=== PATIENT | female | born 1960 | race Caucasian/White ===

== ENCOUNTER 2020-09-12 19:47 | Inpatient (IN) | payer MEDICAID, MEDICARE ==
[~2020-09-12] VITALS: Ht 144.8 cm; Wt 57.4 kg
[2020-09-12 21:17] LABS: ALANINE AMINOTRANSFERASE 51 U/L (12-78); ALBUMIN/GLOBULIN RATIO 0.3 (1.1-1.5); ALKALINE PHOSPHATASE 221 IU/L (46-116); ANION GAP 1 (8-16); ASPARTATE AMINO TRANSFERASE 69 U/L (10-37); BILIRUBIN,TOTAL 1.4 MG/DL (0.1-1.0); BLOOD UREA NITROGEN 12 MG/DL (7-18); BUN/CREATININE RATIO 26.7 (6.6-38.0); CHLORIDE 101 MMOL/L (99-107); CREATININE 0.45 MG/DL (0.40-0.90); SODIUM 134 MMOL/L (135-145); TOTAL CARBON DIOXIDE 31.7 MMOL/L (24-32); TOTAL PROTEIN 8.1 G/DL (6.4-8.2); eGFR > 90 ML/MIN
[2020-09-12 21:19] LABS: BASOPHILS # (AUTO) 0.1 X10'3 (0-0.2); BASOPHILS % (AUTO) 0.8 % (0-1); EOSINOPHILS # (AUTO) 0.2 X10'3 (0-0.9); EOSINOPHILS % (AUTO) 2.6 % (0-6); HEMATOCRIT 24.9 % (35.0-45.0); LYMPHOCYTES # (AUTO) 1.2 X10'3 (1.1-4.8); LYMPHOCYTES % (AUTO) 15.7 % (21-51); MEAN CORPUSCULAR HEMOGLOBIN 30.2 PG (27.0-31.0); MEAN CORPUSCULAR HGB CONC 32.2 g/dL (33.0-36.5); MEAN CORPUSCULAR VOLUME 93.7 FL (78-98); MEAN PLATELET VOLUME 10.7 FL (7.4-10.4); MONOCYTES # (AUTO) 1.6 X10'3 (0-0.9); NEUTROPHILS # (AUTO) 4.7 X10'3 (1.8-7.7); NEUTROPHILS % (AUTO) 59.9 % (42-75); PLATELET COUNT 109 X10'3 (140-440); RED BLOOD COUNT 2.66 X10'6 (4.20-5.60); RED CELL DISTRIBUTION WIDTH 19.5 % (11.5-14.5); WHITE BLOOD COUNT 7.9 X10'3 (4.5-11.0)
[2020-09-12 21:25] LABS: TROPONIN I 0.45 NG/ML (0.0-0.05)
[2020-09-12 21:28] LABS: GLUCOSE 91 MG/DL (70-104)
[2020-09-12 21:50] LABS: TOTAL CELLS COUNTED 100
[2020-09-12 21:51] LABS: ANISOCYTOSIS 2+; PLATELET ESTIMATE DECREASED; POLYCHROMASIA FEW
[2020-09-12 21:52] LABS: HYPOCHROMASIA 3+; LARGE PLATELETS FEW
[2020-09-12] MEDS ORDERED: heparin 10,000 units/1 ML INJ IV ONE (22:10)
[2020-09-12] MEDS ORDERED: heparin 10,000 units/1 ML INJ IV PRN (22:10)
[2020-09-12] MEDS ORDERED: heparin 25,000 UNIT/250ml bag 250 ML IV SCH (22:10)
[2020-09-12] MEDS ORDERED: iohexol 350MG/ML 100ml bottle IV ONE (22:12)
[2020-09-12 22:43] LABS: PARTIAL THROMBOPLASTIN TIME 32 SECONDS (22-32)
--- NOTE | 2020-09-12 22:48 | NUR ---
SAFE WORD: "kailyn". Daughter Archana, Son Pop, and Daughter Taryn williay to have information regarding pt.
[2020-09-12] MEDS ORDERED: POTA10CA44 PO (22:57)
[2020-09-12] MEDS ORDERED: LISI20TA28 PO (22:59)
[2020-09-12] MEDS ORDERED: FURO-150 PO (23:00)
[2020-09-12] MEDS ORDERED: SPIR50TA5 PO (23:00)
[2020-09-12] MEDS ORDERED: OLAN5TAB5 PO (23:01)
[2020-09-12] MEDS ORDERED: DOXYCYCLINE 100MG CAPSULE PO STA (23:35)
[2020-09-12] MEDS ORDERED: CefTRIAXone 2gm/D5W 50ml BAG 50 ML IV ONE (23:35)
[2020-09-13] MEDS ORDERED: furosemide 10 MG/1 ML 10ml inj IV ONE (00:45)
[2020-09-13] MEDS ORDERED: ondansetron/PF 4mg/2ml inj IV PRN (01:35)
[2020-09-13] MEDS ORDERED: potassium Cl 20 mEq SR tablet PO PRN ×2 (01:35)
[2020-09-13] MEDS ORDERED: potassium Cl 40MEQ/1/2NS 520ml 520 ML IV PRN ×2 (01:35)
[2020-09-13] MEDS ORDERED: magnesium hydroxide 30ml (MOM) UD suspension PO PRN (01:35)
[2020-09-13] MEDS ORDERED: acetaminophen 325mg tablet PO PRN (01:35)
[2020-09-13] MEDS ORDERED: albuterol 2.5 MG/3 ML nebule NEB PRN (01:40)
[2020-09-13 02:00] VITALS: BP 110/58
[2020-09-13 06:00] VITALS: BP 95/44
--- NOTE | 2020-09-13 06:23 | NUR ---
Problems reprioritized. Patient report given, questions answered & plan of care reviewed with Allan RICHARD.
[2020-09-13] MEDS: OLANZAPINE 5 MG TABLET PO SCH (07:16)
[2020-09-13] MEDS: spironolactone 50 MG tablet PO SCH (07:16)
[2020-09-13] MEDS: K and/or MAG REPLACEMENT MC SCH ×2 (07:17→20:00)
[2020-09-13] MEDS: furosemide 20MG tablet PO SCH (07:17)
[2020-09-13] MEDS: potassium Cl 20 mEq SR tablet PO SCH ×2 (07:21→20:00)
[2020-09-13] MEDS: lisinopril 5mg tablet PO SCH (08:00)
[2020-09-13 11:00] VITALS: BP 103/49
[2020-09-13] MEDS ORDERED: mag hydrox/Alum hydrox/simeth 30ml oral suspension PO ONE (13:25)
[2020-09-13] MEDS ORDERED: diphenhydrAMINE 25 MG/10 ML UD oral solution PO ONE (13:25)
[2020-09-13 15:00] VITALS: BP 93/42
[2020-09-13] MEDS: LIDOcaine Viscous 15ml cup MM PRN (15:31)
[2020-09-13 18:00] VITALS: BP 100/53
[2020-09-13] MEDS: lactobacillus rhamnosus 10,000 MMU CELLS/CAPSULE PO SCH (20:13)
[2020-09-13] MEDS: HYDROcodone/acetaminophen 5mg/325mg tablet PO PRN (21:20)
[2020-09-13 22:00] VITALS: BP 91/44
[2020-09-13] MEDS: CefTRIAXone/D5W-Rocephin 1gm 50 ML IV SCH (22:51)
[2020-09-13] MEDS ORDERED: furosemide 20 MG/2 ML vial IV ONE (23:00)
[2020-09-13] MEDS ORDERED: heparin 25,000 UNIT/250ml bag 250 ML IV SCH (23:00)
[2020-09-13] MEDS ORDERED: heparin 10,000 units/1 ML INJ IV ONE (23:00)
[2020-09-13] MEDS ORDERED: heparin 10,000 units/1 ML INJ IV PRN (23:00)
[2020-09-13] MEDS ORDERED: regadenoson 0.4mg/5ml syringe IV PRN (23:40)
[2020-09-13] MEDS ORDERED: metoprolol tartrate 1mg/ml inj IV PRN (23:40)
[2020-09-13] MEDS ORDERED: aminophylline 250mg/10ml inj. IV PRN (23:40)
[2020-09-13] MEDS ORDERED: nitroGLYCERIN 0.4mg SUBLingual tab SL PRN (23:40)
[2020-09-14] VITALS (16 sets, daily range): BP systolic 100–119; BP diastolic 45–63
[2020-09-14 00:40] LABS: URINE AMPHETAMINE SCREEN NEGATIVE (Neg); URINE BARBITUATE SCREEN NEGATIVE (Neg); URINE BENZODIAZEPINES SCREEN NEGATIVE (Neg); URINE CANNABINOID SCREEN NEGATIVE (Neg); URINE COCAINE SCREEN NEGATIVE (Neg); URINE METHADONE SCREEN NEGATIVE (Neg); URINE OPIATE SCREEN NEGATIVE (Neg); URINE PHENCYCLIDINE SCREEN NEGATIVE (Neg)
[2020-09-14 04:01] LABS: ALANINE AMINOTRANSFERASE 35 U/L (12-78); ALBUMIN 1.6 G/DL (3.4-5.0); ALBUMIN/GLOBULIN RATIO 0.3 (1.1-1.5); ALKALINE PHOSPHATASE 153 IU/L (46-116); ANION GAP 1 (8-16); ASPARTATE AMINO TRANSFERASE 62 U/L (10-37); BILIRUBIN,TOTAL 1.1 MG/DL (0.1-1.0); BLOOD UREA NITROGEN 13 MG/DL (7-18); BUN/CREATININE RATIO 27.7 (6.6-38.0); CALCIUM 7.3 MG/DL (8.5-10.1); CHLORIDE 101 MMOL/L (99-107); CREATININE 0.47 MG/DL (0.40-0.90); GLUCOSE 87 MG/DL (70-104); POTASSIUM 4.7 MMOL/L (3.5-5.1); SODIUM 136 MMOL/L (135-145); TOTAL CARBON DIOXIDE 33.9 MMOL/L (24-32); TOTAL PROTEIN 6.5 G/DL (6.4-8.2); eGFR > 90 ML/MIN
[2020-09-14 04:53] LABS: PLATELET COUNT 77 X10'3 (140-440)
[2020-09-14 04:55] LABS: MEAN CORPUSCULAR HGB CONC 32.8 g/dL (33.0-36.5); MEAN CORPUSCULAR VOLUME 91.3 FL (78-98); MEAN PLATELET VOLUME 10.8 FL (7.4-10.4); RED BLOOD COUNT 2.33 X10'6 (4.20-5.60); RED CELL DISTRIBUTION WIDTH 19.4 % (11.5-14.5)
[2020-09-14 05:50] LABS: HEMATOCRIT 21.3 % (35.0-45.0)
[2020-09-14 06:34] LABS: PLATELET ESTIMATE DECREASED; TOTAL CELLS COUNTED 100
[2020-09-14 06:35] LABS: ANISOCYTOSIS 2+; HYPOCHROMASIA 1+; LARGE PLATELETS FEW; POLYCHROMASIA 1+
[2020-09-14] MEDS: lisinopril 5mg tablet PO SCH (08:00)
[2020-09-14] MEDS: potassium Cl 20 mEq SR tablet PO SCH ×2 (08:00→19:38)
[2020-09-14] MEDS: K and/or MAG REPLACEMENT MC SCH ×2 (08:00→19:38)
[2020-09-14] MEDS: spironolactone 50 MG tablet PO SCH (08:26)
[2020-09-14] MEDS: OLANZAPINE 5 MG TABLET PO SCH (08:26)
[2020-09-14] MEDS: lactobacillus rhamnosus 10,000 MMU CELLS/CAPSULE PO SCH ×2 (08:26→19:37)
[2020-09-14] MEDS: furosemide 20MG tablet PO SCH (08:26)
--- NOTE | 2020-09-14 10:43 | NUR ---
BECKY VIGIL: 3028B: Bloody tissues found on table. Pt states she's been coughing up blood at times this morning. HEPARIN stopped last night. Hgb dropped from 8.0 --> 7.0 this AM. No signs of bleeding. Recommend CT abd? Allan [id number]
[2020-09-14] MEDS: LIDOcaine Viscous 15ml cup MM PRN (16:38)
[2020-09-14] MEDS: HYDROcodone/acetaminophen 5mg/325mg tablet PO PRN ×2 (16:39→21:05)
[2020-09-14] MEDS: pantoprazole 40 MG vial IV SCH (19:37)
[2020-09-14 19:54] LABS: BASOPHILS # (AUTO) 0.1 X10'3 (0-0.2); BASOPHILS % (AUTO) 1.3 % (0-1); EOSINOPHILS # (AUTO) 0.2 X10'3 (0-0.9); EOSINOPHILS % (AUTO) 4.2 % (0-6); HEMATOCRIT 25.6 % (35.0-45.0); HEMOGLOBIN 8.4 g/dl (12.0-16.0); LYMPHOCYTES # (AUTO) 0.9 X10'3 (1.1-4.8); LYMPHOCYTES % (AUTO) 20.2 % (21-51); MEAN CORPUSCULAR HGB CONC 32.9 g/dL (33.0-36.5); MEAN CORPUSCULAR VOLUME 91.1 FL (78-98); MEAN PLATELET VOLUME 9.8 FL (7.4-10.4); MONOCYTES # (AUTO) 1.1 X10'3 (0-0.9); MONOCYTES % (AUTO) 23.7 % (2-12); NEUTROPHILS # (AUTO) 2.4 X10'3 (1.8-7.7); NEUTROPHILS % (AUTO) 50.6 % (42-75); PLATELET COUNT 77 X10'3 (140-440); RED BLOOD COUNT 2.81 X10'6 (4.20-5.60); RED CELL DISTRIBUTION WIDTH 18.4 % (11.5-14.5); WHITE BLOOD COUNT 4.7 X10'3 (4.5-11.0)
[2020-09-14] MEDS: CefTRIAXone/D5W-Rocephin 1gm 50 ML IV SCH (21:06)
[2020-09-15 02:00] VITALS: BP 121/55
[2020-09-15 06:00] VITALS: BP 102/60
[2020-09-15 06:33] LABS: BASOPHILS # (AUTO) 0.1 X10'3 (0-0.2); BASOPHILS % (AUTO) 1.5 % (0-1); EOSINOPHILS # (AUTO) 0.3 X10'3 (0-0.9); EOSINOPHILS % (AUTO) 4.4 % (0-6); HEMATOCRIT 26.6 % (35.0-45.0); HEMOGLOBIN 8.8 g/dl (12.0-16.0); LYMPHOCYTES # (AUTO) 1.1 X10'3 (1.1-4.8); LYMPHOCYTES % (AUTO) 18.5 % (21-51); MEAN CORPUSCULAR HGB CONC 33.1 g/dL (33.0-36.5); MEAN CORPUSCULAR VOLUME 90.6 FL (78-98); MEAN PLATELET VOLUME 10.9 FL (7.4-10.4); MONOCYTES # (AUTO) 1.2 X10'3 (0-0.9); MONOCYTES % (AUTO) 20.6 % (2-12); NEUTROPHILS # (AUTO) 3.2 X10'3 (1.8-7.7); PLATELET COUNT 76 X10'3 (140-440); RED BLOOD COUNT 2.94 X10'6 (4.20-5.60); RED CELL DISTRIBUTION WIDTH 18.9 % (11.5-14.5); WHITE BLOOD COUNT 5.7 X10'3 (4.5-11.0)
--- NOTE | 2020-09-15 06:37 | NUR ---
Patient in room PCU 3028. I have received report from Monster RICHARD and had the opportunity to ask questions and assume patient care.
[2020-09-15 06:38] LABS: ALANINE AMINOTRANSFERASE 42 U/L (12-78); ALBUMIN 1.9 G/DL (3.4-5.0); ALBUMIN/GLOBULIN RATIO 0.3 (1.1-1.5); ALKALINE PHOSPHATASE 178 IU/L (46-116); ANION GAP 2 (8-16); ASPARTATE AMINO TRANSFERASE 56 U/L (10-37); BILIRUBIN,TOTAL 1.6 MG/DL (0.1-1.0); BLOOD UREA NITROGEN 13 MG/DL (7-18); BUN/CREATININE RATIO 27.7 (6.6-38.0); CALCIUM 7.7 MG/DL (8.5-10.1); CHLORIDE 102 MMOL/L (99-107); CREATININE 0.47 MG/DL (0.40-0.90); GLUCOSE 89 MG/DL (70-104); POTASSIUM 4.3 MMOL/L (3.5-5.1); SODIUM 136 MMOL/L (135-145); TOTAL CARBON DIOXIDE 32.3 MMOL/L (24-32); TOTAL PROTEIN 7.6 G/DL (6.4-8.2); eGFR > 90 ML/MIN
[2020-09-15] MEDS: pantoprazole 40 MG vial IV SCH (07:47)
[2020-09-15] MEDS: furosemide 20MG tablet PO SCH (07:47)
[2020-09-15] MEDS: potassium Cl 20 mEq SR tablet PO SCH ×2 (07:47→20:00)
[2020-09-15] MEDS: lisinopril 5mg tablet PO SCH (07:48)
[2020-09-15] MEDS: spironolactone 50 MG tablet PO SCH (07:49)
[2020-09-15] MEDS: lactobacillus rhamnosus 10,000 MMU CELLS/CAPSULE PO SCH ×2 (07:49→20:21)
[2020-09-15] MEDS: OLANZAPINE 5 MG TABLET PO SCH (07:49)
[2020-09-15] MEDS: K and/or MAG REPLACEMENT MC SCH ×2 (07:55→20:00)
[2020-09-15] MEDS: HYDROcodone/acetaminophen 5mg/325mg tablet PO PRN ×2 (07:59→16:43)
[2020-09-15 08:28] LABS: TOTAL CELLS COUNTED 100
[2020-09-15 08:30] LABS: ANISOCYTOSIS 2+; LARGE PLATELETS FEW; PLATELET ESTIMATE DECREASED; POLYCHROMASIA 1+; TEAR DROP CELLS FEW
[2020-09-15 11:00] VITALS: BP 94/59
--- NOTE | 2020-09-15 14:03 | NUR ---
Sent page to Dr Washington regarding patient's family members are concerned about discharge, patient is homeless and their home is to small to accommodate patient at discharge. PAGER ID: [phone] MESSAGE: Lizzy VAIL RN pt: Shira Hannah, family called to inform us patient is homeless, no safe discharge place. they are unable to take her. please call pt's daughter Archana [phone]
[2020-09-15 15:00] VITALS: BP 111/56
[2020-09-15 18:00] VITALS: BP 101/51
--- NOTE | 2020-09-15 18:11 | NUR ---
Problems reprioritized. Patient report given, questions answered & plan of care reviewed with Monster RICHARD.
[2020-09-15] MEDS: mag hydrox/Alum hydrox/simeth 30ml oral suspension PO PRN (19:02)
[2020-09-15] MEDS: LIDOcaine Viscous 15ml cup MM PRN (19:03)
[2020-09-15] MEDS: ipratropium/albuterol 3ml nebule NEB SCH ×2 (19:45→23:18)
[2020-09-15] MEDS: pantoprazole 40mg Tablet.DR PO SCH (20:21)
[2020-09-15] MEDS: CefTRIAXone/D5W-Rocephin 1gm 50 ML IV SCH (20:22)
[2020-09-15 22:00] VITALS: BP 90/49
[2020-09-16 02:00] VITALS: BP 123/48
[2020-09-16] MEDS: HYDROcodone/acetaminophen 5mg/325mg tablet PO PRN ×3 (03:04→16:21)
[2020-09-16] MEDS: ipratropium/albuterol 3ml nebule NEB SCH ×6 (03:08→23:26)
[2020-09-16 06:00] VITALS: BP 96/54
[2020-09-16 06:25] LABS: BASOPHILS # (AUTO) 0.1 X10'3 (0-0.2); BASOPHILS % (AUTO) 1.4 % (0-1); EOSINOPHILS # (AUTO) 0.2 X10'3 (0-0.9); EOSINOPHILS % (AUTO) 3.8 % (0-6); HEMATOCRIT 23.1 % (35.0-45.0); HEMOGLOBIN 7.6 g/dl (12.0-16.0); LYMPHOCYTES # (AUTO) 1.1 X10'3 (1.1-4.8); LYMPHOCYTES % (AUTO) 18.1 % (21-51); MEAN CORPUSCULAR HEMOGLOBIN 30.1 PG (27.0-31.0); MEAN CORPUSCULAR HGB CONC 33.1 g/dL (33.0-36.5); MEAN CORPUSCULAR VOLUME 90.9 FL (78-98); MEAN PLATELET VOLUME 10.5 FL (7.4-10.4); MONOCYTES # (AUTO) 1.3 X10'3 (0-0.9); MONOCYTES % (AUTO) 21.7 % (2-12); NEUTROPHILS # (AUTO) 3.4 X10'3 (1.8-7.7); PLATELET COUNT 74 X10'3 (140-440); RED BLOOD COUNT 2.54 X10'6 (4.20-5.60); RED CELL DISTRIBUTION WIDTH 18.8 % (11.5-14.5); WHITE BLOOD COUNT 6.1 X10'3 (4.5-11.0)
--- NOTE | 2020-09-16 06:31 | NUR ---
Patient in room PCU 3028. I have received report from Monster RICHARD and had the opportunity to ask questions and assume patient care.
[2020-09-16 06:44] LABS: ANION GAP -1 (8-16); BLOOD UREA NITROGEN 17 MG/DL (7-18); BUN/CREATININE RATIO 36.2 (6.6-38.0); CALCIUM 7.4 MG/DL (8.5-10.1); CHLORIDE 102 MMOL/L (99-107); CREATININE 0.47 MG/DL (0.40-0.90); SODIUM 134 MMOL/L (135-145); eGFR > 90 ML/MIN
[2020-09-16 06:45] LABS: ALANINE AMINOTRANSFERASE 38 U/L (12-78); ALBUMIN 1.7 G/DL (3.4-5.0); ALBUMIN/GLOBULIN RATIO 0.3 (1.1-1.5); ALKALINE PHOSPHATASE 166 IU/L (46-116); ASPARTATE AMINO TRANSFERASE 51 U/L (10-37); BILIRUBIN,TOTAL 1.2 MG/DL (0.1-1.0)
[2020-09-16 06:46] LABS: GLUCOSE 70 MG/DL (70-104)
[2020-09-16] MEDS: K and/or MAG REPLACEMENT MC SCH ×2 (07:08→19:54)
[2020-09-16] MEDS: azithromycin/NS 500mg/250ml 250 ML IV SCH (07:50)
[2020-09-16] MEDS: spironolactone 50 MG tablet PO SCH (07:52)
[2020-09-16] MEDS: lactobacillus rhamnosus 10,000 MMU CELLS/CAPSULE PO SCH ×2 (07:52→19:54)
[2020-09-16] MEDS: OLANZAPINE 5 MG TABLET PO SCH (07:52)
[2020-09-16] MEDS: pantoprazole 40mg Tablet.DR PO SCH ×2 (07:52→19:54)
[2020-09-16] MEDS: furosemide 20MG tablet PO SCH (07:52)
[2020-09-16] MEDS: lisinopril 5mg tablet PO SCH (07:53)
[2020-09-16] MEDS: potassium Cl 20 mEq SR tablet PO SCH ×2 (07:53→19:54)
[2020-09-16 11:00] VITALS: BP 104/60
[2020-09-16 15:00] VITALS: BP 114/67
[2020-09-16] MEDS: benzonatate 100mg capsule PO SCH ×2 (16:10→23:06)
[2020-09-16] MEDS: LIDOcaine Viscous 15ml cup MM PRN (16:21)
[2020-09-16 18:00] VITALS: BP 107/52
--- NOTE | 2020-09-16 18:12 | NUR ---
Patient in room PCU 3028. I have received report from Monster RICHARD and had the opportunity to ask questions and assume patient care.
[2020-09-16] MEDS: budesonide 0.5mg/2ml UD nebule IH SCH (20:06)
[2020-09-16] MEDS: CefTRIAXone/D5W-Rocephin 1gm 50 ML IV SCH (21:17)
[2020-09-16 22:00] VITALS: BP 111/56
[2020-09-17] VITALS (7 sets, daily range): BP systolic 88–143; BP diastolic 40–71
[2020-09-17] MEDS: ipratropium/albuterol 3ml nebule NEB SCH ×6 (03:20→23:26)
[2020-09-17] MEDS: HYDROcodone/acetaminophen 5mg/325mg tablet PO PRN ×2 (03:37→15:08)
[2020-09-17] MEDS: mag hydrox/Alum hydrox/simeth 30ml oral suspension PO PRN (03:37)
[2020-09-17] MEDS: budesonide 0.5mg/2ml UD nebule IH SCH ×2 (07:00→19:35)
[2020-09-17] MEDS: benzonatate 100mg capsule PO SCH ×2 (07:23→15:07)
[2020-09-17] MEDS: lactobacillus rhamnosus 10,000 MMU CELLS/CAPSULE PO SCH ×2 (07:23→20:00)
[2020-09-17] MEDS: azithromycin/NS 500mg/250ml 250 ML IV SCH (07:23)
[2020-09-17] MEDS: furosemide 20MG tablet PO SCH (07:24)
[2020-09-17] MEDS: pantoprazole 40mg Tablet.DR PO SCH ×2 (07:24→20:00)
[2020-09-17] MEDS: OLANZAPINE 5 MG TABLET PO SCH (07:24)
[2020-09-17] MEDS: spironolactone 50 MG tablet PO SCH (07:24)
[2020-09-17] MEDS: potassium Cl 20 mEq SR tablet PO SCH ×2 (07:24→20:00)
[2020-09-17] MEDS: lisinopril 5mg tablet PO SCH (07:26)
[2020-09-17] MEDS: K and/or MAG REPLACEMENT MC SCH ×2 (08:00→20:00)
[2020-09-17 08:10] LABS: BASOPHILS # (AUTO) 0.1 X10'3 (0-0.2); HEMOGLOBIN 7.6 g/dl (12.0-16.0); RED BLOOD COUNT 2.55 X10'6 (4.20-5.60)
[2020-09-17 08:13] LABS: BASOPHILS % (AUTO) 1.4 % (0-1); EOSINOPHILS # (AUTO) 0.3 X10'3 (0-0.9); EOSINOPHILS % (AUTO) 5.1 % (0-6); HEMATOCRIT 23.2 % (35.0-45.0); LYMPHOCYTES % (AUTO) 19.1 % (21-51); MEAN CORPUSCULAR HEMOGLOBIN 29.6 PG (27.0-31.0); MEAN CORPUSCULAR HGB CONC 32.6 g/dL (33.0-36.5); MEAN PLATELET VOLUME 11.1 FL (7.4-10.4); NEUTROPHILS # (AUTO) 2.8 X10'3 (1.8-7.7); NEUTROPHILS % (AUTO) 54.4 % (42-75); PLATELET COUNT 71 X10'3 (140-440); WHITE BLOOD COUNT 5.2 X10'3 (4.5-11.0)
[2020-09-17 08:25] LABS: ALANINE AMINOTRANSFERASE 34 U/L (12-78); ALBUMIN 1.7 G/DL (3.4-5.0); ALBUMIN/GLOBULIN RATIO 0.3 (1.1-1.5); ALKALINE PHOSPHATASE 151 IU/L (46-116); ANION GAP -1 (8-16); ASPARTATE AMINO TRANSFERASE 53 U/L (10-37); BILIRUBIN,TOTAL 1.4 MG/DL (0.1-1.0); BLOOD UREA NITROGEN 16 MG/DL (7-18); BUN/CREATININE RATIO 38.1 (6.6-38.0); CALCIUM 7.6 MG/DL (8.5-10.1); CHLORIDE 101 MMOL/L (99-107); CREATININE 0.42 MG/DL (0.40-0.90); POTASSIUM 4.9 MMOL/L (3.5-5.1); SODIUM 133 MMOL/L (135-145); TOTAL CARBON DIOXIDE 32.6 MMOL/L (24-32); TOTAL PROTEIN 6.9 G/DL (6.4-8.2); eGFR > 90 ML/MIN
[2020-09-17 08:31] LABS: GLUCOSE 90 MG/DL (70-104)
[2020-09-17 09:08] LABS: ANISOCYTOSIS 2+; PLATELET ESTIMATE DECREASED
[2020-09-17 09:17] LABS: HYPOCHROMASIA 1+
[2020-09-17 09:18] LABS: SCHISTOCYTES FEW
--- NOTE | 2020-09-17 09:54 | NUR ---
Initial: Pt admit w/ SOB DX anemia, type II UT, CHF, pleural effusion, and acute COPD exacerbation per EMR. Pt PO 100% avg heart healthy diet meeting needs. LBM 09/16. Noted Na 133 receiving lasix w/ -1.6L fluid balance this admit. IF serum Na remains low may benefit from liberalization to regular diet. Will continue to monitor. Rec: 1. continue heart healthy diet; consider liberalization to regular if low serum Na persists 2. routine bowel care 3. weekly wts Addendum: 09/17/20 at [address] Amended: Links added.
[2020-09-17] MEDS: LIDOcaine Viscous 15ml cup MM PRN (12:02)
--- NOTE | 2020-09-17 18:14 | NUR ---
Problems reprioritized. Patient report given, questions answered & plan of care reviewed with Monster RICHARD.
[2020-09-17] MEDS: CefTRIAXone/D5W-Rocephin 1gm 50 ML IV SCH (21:39)
[2020-09-18] MEDS: benzonatate 100mg capsule PO SCH ×3 (01:17→15:45)
[2020-09-18] MEDS: HYDROcodone/acetaminophen 5mg/325mg tablet PO PRN ×3 (01:18→21:50)
[2020-09-18 02:00] VITALS: BP 92/54
[2020-09-18] MEDS: ipratropium/albuterol 3ml nebule NEB SCH ×5 (03:37→22:57)
[2020-09-18 06:00] VITALS: BP 94/51
--- NOTE | 2020-09-18 06:17 | NUR ---
Patient in room PCU 3028. I have received report from Monster RICHARD and had the opportunity to ask questions and assume patient care.
[2020-09-18 06:54] LABS: BASOPHILS # (AUTO) 0.1 X10'3 (0-0.2); BASOPHILS % (AUTO) 1.7 % (0-1); EOSINOPHILS # (AUTO) 0.2 X10'3 (0-0.9); EOSINOPHILS % (AUTO) 4.3 % (0-6); HEMOGLOBIN 7.7 g/dl (12.0-16.0); LYMPHOCYTES # (AUTO) 1.1 X10'3 (1.1-4.8); LYMPHOCYTES % (AUTO) 20.7 % (21-51); MEAN CORPUSCULAR HEMOGLOBIN 29.8 PG (27.0-31.0); MEAN CORPUSCULAR HGB CONC 32.3 g/dL (33.0-36.5); MEAN CORPUSCULAR VOLUME 92.1 FL (78-98); MEAN PLATELET VOLUME 11.4 FL (7.4-10.4); MONOCYTES # (AUTO) 1.1 X10'3 (0-0.9); MONOCYTES % (AUTO) 21.1 % (2-12); NEUTROPHILS # (AUTO) 2.8 X10'3 (1.8-7.7); NEUTROPHILS % (AUTO) 52.2 % (42-75); PLATELET COUNT 79 X10'3 (140-440); WHITE BLOOD COUNT 5.4 X10'3 (4.5-11.0)
[2020-09-18 07:21] LABS: ALANINE AMINOTRANSFERASE 39 U/L (12-78); ALBUMIN 1.7 G/DL (3.4-5.0); ALBUMIN/GLOBULIN RATIO 0.3 (1.1-1.5); ALKALINE PHOSPHATASE 150 IU/L (46-116); ANION GAP 3 (8-16); ASPARTATE AMINO TRANSFERASE 57 U/L (10-37); BILIRUBIN,TOTAL 1.3 MG/DL (0.1-1.0); BLOOD UREA NITROGEN 18 MG/DL (7-18); BUN/CREATININE RATIO 40.9 (6.6-38.0); CALCIUM 8.2 MG/DL (8.5-10.1); CHLORIDE 102 MMOL/L (99-107); CREATININE 0.44 MG/DL (0.40-0.90); GLUCOSE 87 MG/DL (70-104); POTASSIUM 4.9 MMOL/L (3.5-5.1); SODIUM 135 MMOL/L (135-145); TOTAL CARBON DIOXIDE 29.9 MMOL/L (24-32); TOTAL PROTEIN 7.3 G/DL (6.4-8.2); eGFR > 90 ML/MIN
[2020-09-18] MEDS: OLANZAPINE 5 MG TABLET PO SCH (07:26)
[2020-09-18] MEDS: pantoprazole 40mg Tablet.DR PO SCH ×2 (07:26→19:17)
[2020-09-18] MEDS: azithromycin/NS 500mg/250ml 250 ML IV SCH (07:26)
[2020-09-18] MEDS: spironolactone 50 MG tablet PO SCH (07:26)
[2020-09-18] MEDS: potassium Cl 20 mEq SR tablet PO SCH ×2 (07:26→19:17)
[2020-09-18] MEDS: furosemide 20MG tablet PO SCH (07:26)
[2020-09-18] MEDS: lactobacillus rhamnosus 10,000 MMU CELLS/CAPSULE PO SCH ×2 (07:26→19:17)
[2020-09-18] MEDS: lisinopril 5mg tablet PO SCH (07:32)
[2020-09-18] MEDS: budesonide 0.5mg/2ml UD nebule IH SCH (07:38)
[2020-09-18] MEDS: K and/or MAG REPLACEMENT MC SCH ×2 (08:00→19:25)
[2020-09-18 08:39] LABS: ANISOCYTOSIS 2+; BURR CELLS 1+; HYPOCHROMASIA 1+; PLATELET ESTIMATE DECREASED; SCHISTOCYTES FEW
[2020-09-18] MEDS: LIDOcaine Viscous 15ml cup MM PRN (09:56)
[2020-09-18 11:00] VITALS: BP 109/53
[2020-09-18 15:00] VITALS: BP 104/62
--- NOTE | 2020-09-18 18:23 | NUR ---
Problems reprioritized. Patient report given, questions answered & plan of care reviewed with ELEAZAR RICHARD.
[2020-09-18 19:00] VITALS: BP 109/57
[2020-09-18] MEDS ORDERED: methylPREDNISolone sod succ 125mg/2ml vial IV ONE (19:50)
[2020-09-18] MEDS ORDERED: ipratropium/albuterol 3ml nebule NEB PRN (19:50)
[2020-09-18] MEDS ORDERED: methylPREDNISolone sod succ 125mg/2ml vial IV SCH (20:00)
[2020-09-18] MEDS: CefTRIAXone/D5W-Rocephin 1gm 50 ML IV SCH (21:50)
[2020-09-18 23:00] VITALS: BP 100/58
[2020-09-19] MEDS: benzonatate 100mg capsule PO SCH ×3 (00:56→16:25)
[2020-09-19] MEDS: methylPREDNISolone sod succ 125mg/2ml vial IV SCH ×4 (02:18→20:00)
[2020-09-19 03:00] VITALS: BP 104/57
[2020-09-19] MEDS: ipratropium/albuterol 3ml nebule NEB SCH ×6 (03:42→23:16)
--- NOTE | 2020-09-19 06:00 | NUR ---
Patient in room PCU 3028. I have received report from ELEAZAR RICHARD and had the opportunity to ask questions and assume patient care.
[2020-09-19 07:40] VITALS: BP 102/52
[2020-09-19] MEDS: K and/or MAG REPLACEMENT MC SCH ×2 (08:00→20:00)
[2020-09-19] MEDS: furosemide 40mg/4ml inj IV SCH ×2 (08:24→20:00)
[2020-09-19] MEDS: OLANZAPINE 5 MG TABLET PO SCH (08:25)
[2020-09-19] MEDS: lactobacillus rhamnosus 10,000 MMU CELLS/CAPSULE PO SCH ×2 (08:25→20:00)
[2020-09-19] MEDS: HYDROcodone/acetaminophen 5mg/325mg tablet PO PRN ×2 (08:25→21:21)
[2020-09-19] MEDS: potassium Cl 20 mEq SR tablet PO SCH ×2 (08:25→20:00)
[2020-09-19] MEDS: spironolactone 50 MG tablet PO SCH (08:25)
[2020-09-19] MEDS: azithromycin 250mg tablet PO SCH (08:25)
[2020-09-19] MEDS: pantoprazole 40mg Tablet.DR PO SCH (08:25)
[2020-09-19] MEDS: lisinopril 5mg tablet PO SCH (08:26)
[2020-09-19 08:47] LABS: HIV ANTIBODY 1&2 RAPID NON-REACTIVE (Neg)
[2020-09-19 11:21] LABS: BASOPHILS % (AUTO) 0.6 % (0-1); EOSINOPHILS % (AUTO) 0.1 % (0-6); HEMATOCRIT 26.3 % (35.0-45.0); HEMOGLOBIN 8.4 g/dl (12.0-16.0); LYMPHOCYTES # (AUTO) 0.2 X10'3 (1.1-4.8); MEAN CORPUSCULAR VOLUME 90.6 FL (78-98); MEAN PLATELET VOLUME 11.9 FL (7.4-10.4); MONOCYTES # (AUTO) 0.1 X10'3 (0-0.9); NEUTROPHILS # (AUTO) 3.5 X10'3 (1.8-7.7); NEUTROPHILS % (AUTO) 90.3 % (42-75); PLATELET COUNT 74 X10'3 (140-440); RED BLOOD COUNT 2.91 X10'6 (4.20-5.60); RED CELL DISTRIBUTION WIDTH 19.1 % (11.5-14.5); WHITE BLOOD COUNT 3.9 X10'3 (4.5-11.0)
[2020-09-19 11:27] LABS: MAGNESIUM 1.9 MG/DL (1.5-2.4); PHOSPHORUS 4.1 MG/DL (2.3-4.5)
[2020-09-19 12:14] LABS: ANISOCYTOSIS 2+; HYPOCHROMASIA 1+; PLATELET ESTIMATE DECREASED; SCHISTOCYTES FEW
[2020-09-19] MEDS: LIDOcaine Viscous 15ml cup MM PRN ×2 (12:54→21:20)
[2020-09-19 13:18] VITALS: BP 91/52
[2020-09-19] MEDS ORDERED: octreotide 100mcg/1 ml ampule IV ONE (16:10)
[2020-09-19] MEDS: pantoprazole 40MG/NS 100ML BAG 100 ML IV SCH ×3 (16:25→21:20)
[2020-09-19 17:35] VITALS: BP 105/49
[2020-09-19 17:53] LABS: OCCULT BLOOD STOOL POSITIVE (Neg)
[2020-09-19 18:00] VITALS: BP 104/56
--- NOTE | 2020-09-19 18:02 | NUR ---
Patient in room PCU 3028. I have received report from hadrik keysha and had the opportunity to ask questions and assume patient care.
--- NOTE | 2020-09-19 19:33 | NUR ---
pt had a moderate black tarry stool
[2020-09-19] MEDS: octreotide inj. 500 MCG in normal saline 100ml IV soln 100 ML IV SCH (20:00)
[2020-09-19] MEDS: CefTRIAXone/D5W-Rocephin 1gm 50 ML IV SCH (21:20)
[2020-09-19 22:00] VITALS: BP 91/56
[2020-09-19] MEDS: sodium ferric gluc complex inj 125 MG in normal saline 100ml IV soln 90 ML IV SCH (22:25)
[2020-09-20] VITALS (10 sets, daily range): BP systolic 91–129; BP diastolic 50–78
[2020-09-20] MEDS: pantoprazole 40MG/NS 100ML BAG 100 ML IV SCH ×5 (02:21→21:28)
[2020-09-20] MEDS: benzonatate 100mg capsule PO SCH ×3 (02:21→15:37)
[2020-09-20] MEDS: methylPREDNISolone sod succ 125mg/2ml vial IV SCH ×4 (02:21→19:57)
[2020-09-20] MEDS: ipratropium/albuterol 3ml nebule NEB SCH ×6 (02:58→23:41)
--- NOTE | 2020-09-20 05:32 | NUR ---
skin assessment on wrong pt
--- NOTE | 2020-09-20 06:09 | NUR ---
Problems reprioritized. Patient report given, questions answered & plan of care reviewed with brayan chopra.
[2020-09-20 07:34] LABS: BASOPHILS % (AUTO) 0 % (0-1); EOSINOPHILS % (AUTO) 0 % (0-6); HEMATOCRIT 23.2 % (35.0-45.0); HEMOGLOBIN 7.4 g/dl (12.0-16.0); LYMPHOCYTES # (AUTO) 0.5 X10'3 (1.1-4.8); LYMPHOCYTES % (AUTO) 5.5 % (21-51); MEAN CORPUSCULAR HEMOGLOBIN 29.5 PG (27.0-31.0); MEAN CORPUSCULAR HGB CONC 31.9 g/dL (33.0-36.5); MEAN CORPUSCULAR VOLUME 92.5 FL (78-98); MEAN PLATELET VOLUME 10.8 FL (7.4-10.4); MONOCYTES # (AUTO) 0.6 X10'3 (0-0.9); MONOCYTES % (AUTO) 6.3 % (2-12); NEUTROPHILS # (AUTO) 8.6 X10'3 (1.8-7.7); NEUTROPHILS % (AUTO) 88.2 % (42-75); PLATELET COUNT 90 X10'3 (140-440); RED BLOOD COUNT 2.51 X10'6 (4.20-5.60); RED CELL DISTRIBUTION WIDTH 19.3 % (11.5-14.5); WHITE BLOOD COUNT 9.7 X10'3 (4.5-11.0)
[2020-09-20 07:54] LABS: ALANINE AMINOTRANSFERASE 43 U/L (12-78); ALBUMIN 1.8 G/DL (3.4-5.0); ALBUMIN/GLOBULIN RATIO 0.3 (1.1-1.5); ALKALINE PHOSPHATASE 138 IU/L (46-116); ANION GAP 6 (8-16); ASPARTATE AMINO TRANSFERASE 51 U/L (10-37); BLOOD UREA NITROGEN 19 MG/DL (7-18); BUN/CREATININE RATIO 30.6 (6.6-38.0); CALCIUM 7.6 MG/DL (8.5-10.1); CHLORIDE 104 MMOL/L (99-107); CREATININE 0.62 MG/DL (0.40-0.90); MAGNESIUM 1.9 MG/DL (1.5-2.4); PHOSPHORUS 4.6 MG/DL (2.3-4.5); POTASSIUM 4.5 MMOL/L (3.5-5.1); SODIUM 139 MMOL/L (135-145); TOTAL CARBON DIOXIDE 28.8 MMOL/L (24-32); TOTAL PROTEIN 7.3 G/DL (6.4-8.2); eGFR > 90 ML/MIN
[2020-09-20] MEDS: potassium Cl 20 mEq SR tablet PO SCH ×2 (08:00→19:57)
[2020-09-20] MEDS: lactobacillus rhamnosus 10,000 MMU CELLS/CAPSULE PO SCH ×2 (08:00→19:58)
[2020-09-20] MEDS: lisinopril 5mg tablet PO SCH (08:00)
[2020-09-20] MEDS: K and/or MAG REPLACEMENT MC SCH ×2 (08:00→20:00)
[2020-09-20] MEDS: OLANZAPINE 5 MG TABLET PO SCH (08:00)
[2020-09-20] MEDS: spironolactone 50 MG tablet PO SCH (08:00)
[2020-09-20 08:02] LABS: GLUCOSE 108 MG/DL (70-104)
[2020-09-20 08:25] LABS: ANISOCYTOSIS 2+; BURR CELLS FEW; HYPOCHROMASIA 1+; LARGE PLATELETS FEW; PLATELET ESTIMATE DECREASED; POLYCHROMASIA 1+; SCHISTOCYTES FEW; TARGET CELLS 1+
[2020-09-20] MEDS: sodium ferric gluc complex inj 125 MG in normal saline 100ml IV soln 90 ML IV SCH (10:34)
[2020-09-20] MEDS: furosemide 40mg/4ml inj IV SCH ×2 (10:34→19:57)
[2020-09-20 11:12] LABS: HBSAG SCREEN Negative (Negative); HEP A AB, IGM Negative (Negative); HEPATITIS C ANTIBODY >11.0 s/co ratio (0.0-0.9)
[2020-09-20] MEDS ORDERED: fentaNYL/PF 50MCG/1 ML 2ML syringe ONE (12:14)
[2020-09-20] MEDS ORDERED: MIDAZolam 1 MG/ML 5ML VIAL ONE (12:14)
[2020-09-20] MEDS ORDERED: LIDOcaine Viscous 15ml cup ONE (12:14)
[2020-09-20] MEDS: azithromycin 250mg tablet PO SCH (15:37)
[2020-09-20] MEDS: octreotide inj. 500 MCG in normal saline 100ml IV soln 100 ML IV SCH (15:38)
[2020-09-20] MEDS: HYDROcodone/acetaminophen 5mg/325mg tablet PO PRN (20:58)
[2020-09-20] MEDS: CefTRIAXone/D5W-Rocephin 1gm 50 ML IV SCH (21:36)
[2020-09-21 02:00] VITALS: BP 124/60
[2020-09-21] MEDS: methylPREDNISolone sod succ 125mg/2ml vial IV SCH ×3 (02:40→14:53)
[2020-09-21] MEDS: pantoprazole 40MG/NS 100ML BAG 100 ML IV SCH ×3 (02:40→11:00)
[2020-09-21] MEDS: ipratropium/albuterol 3ml nebule NEB SCH ×3 (03:14→11:05)
--- NOTE | 2020-09-21 06:26 | NUR ---
Patient in room PCU 3028. I have received report from HILARY Quinones and had the opportunity to ask questions and assume patient care.
[2020-09-21 06:42] LABS: BASOPHILS % (AUTO) 0.2 % (0-1); EOSINOPHILS % (AUTO) 0 % (0-6); HEMATOCRIT 23.4 % (35.0-45.0); HEMOGLOBIN 7.6 g/dl (12.0-16.0); LYMPHOCYTES # (AUTO) 0.4 X10'3 (1.1-4.8); LYMPHOCYTES % (AUTO) 4.3 % (21-51); MEAN CORPUSCULAR HEMOGLOBIN 29.8 PG (27.0-31.0); MEAN CORPUSCULAR HGB CONC 32.6 g/dL (33.0-36.5); MEAN CORPUSCULAR VOLUME 91.5 FL (78-98); MEAN PLATELET VOLUME 10.3 FL (7.4-10.4); MONOCYTES # (AUTO) 0.6 X10'3 (0-0.9); MONOCYTES % (AUTO) 7.8 % (2-12); NEUTROPHILS # (AUTO) 7.1 X10'3 (1.8-7.7); NEUTROPHILS % (AUTO) 87.7 % (42-75); PLATELET COUNT 121 X10'3 (140-440); RED BLOOD COUNT 2.56 X10'6 (4.20-5.60); RED CELL DISTRIBUTION WIDTH 18.6 % (11.5-14.5); WHITE BLOOD COUNT 8.1 X10'3 (4.5-11.0)
[2020-09-21 06:57] LABS: ALANINE AMINOTRANSFERASE 45 U/L (12-78); ALBUMIN 1.9 G/DL (3.4-5.0); ALBUMIN/GLOBULIN RATIO 0.3 (1.1-1.5); ALKALINE PHOSPHATASE 142 IU/L (46-116); ANION GAP 3 (8-16); ASPARTATE AMINO TRANSFERASE 54 U/L (10-37); BILIRUBIN,TOTAL 1.3 MG/DL (0.1-1.0); BLOOD UREA NITROGEN 22 MG/DL (7-18); BUN/CREATININE RATIO 30.6 (6.6-38.0); CALCIUM 7.7 MG/DL (8.5-10.1); CHLORIDE 105 MMOL/L (99-107); CREATININE 0.72 MG/DL (0.40-0.90); MAGNESIUM 1.8 MG/DL (1.5-2.4); PHOSPHORUS 3.3 MG/DL (2.3-4.5); SODIUM 139 MMOL/L (135-145); TOTAL CARBON DIOXIDE 31.5 MMOL/L (24-32); TOTAL PROTEIN 7.6 G/DL (6.4-8.2); eGFR 83 ML/MIN
[2020-09-21 07:00] VITALS: BP 112/67
[2020-09-21 07:03] LABS: GLUCOSE 140 MG/DL (70-104); POTASSIUM 4.4 MMOL/L (3.5-5.1)
[2020-09-21 07:37] LABS: PLATELET ESTIMATE DECREASED; TOTAL CELLS COUNTED 100
[2020-09-21 07:38] LABS: HYPOCHROMASIA 1+; LARGE PLATELETS FEW; POLYCHROMASIA 2+; SCHISTOCYTES FEW; TARGET CELLS FEW
[2020-09-21] MEDS: K and/or MAG REPLACEMENT MC SCH (08:00)
[2020-09-21 08:22] VITALS: BP_SYST 112
[2020-09-21] MEDS: lisinopril 5mg tablet PO SCH (08:22)
[2020-09-21] MEDS: spironolactone 50 MG tablet PO SCH (08:23)
[2020-09-21] MEDS: benzonatate 100mg capsule PO SCH ×2 (08:23)
[2020-09-21] MEDS: OLANZAPINE 5 MG TABLET PO SCH (08:23)
[2020-09-21] MEDS: lactobacillus rhamnosus 10,000 MMU CELLS/CAPSULE PO SCH (08:23)
[2020-09-21] MEDS: potassium Cl 20 mEq SR tablet PO SCH (08:24)
[2020-09-21] MEDS: azithromycin 250mg tablet PO SCH (08:24)
[2020-09-21] MEDS: furosemide 40mg/4ml inj IV SCH (08:24)
[2020-09-21] MEDS: octreotide inj. 500 MCG in normal saline 100ml IV soln 100 ML IV SCH (08:37)
[2020-09-21] MEDS: sodium ferric gluc complex inj 125 MG in normal saline 100ml IV soln 90 ML IV SCH (10:00)
[2020-09-21] MEDS ORDERED: ALBU8.5H8 INH (10:51)
[2020-09-21] MEDS ORDERED: LISI-790 PO (10:51)
[2020-09-21] MEDS ORDERED: PANT40TA54 PO (10:51)
[2020-09-21] MEDS ORDERED: PRED10TA23 PO (10:51)
[2020-09-21] MEDS ORDERED: LACT1CAP26 PO (10:51)
[2020-09-21] MEDS ORDERED: BUDE10.22 INH (10:51)
[2020-09-21] MEDS ORDERED: CEFD300C3 PO (10:51)
--- NOTE | 2020-09-21 15:55 | NUR ---
Patietnt stable for discharge per MD orders. PIVs discontinued intact. nurse monitoring removed and returned to telemetry office. All discharge orders and instructions reviewed with patient and daughter, who were given the opportunity to ask questions and expressed understanding. Patient wheeled to private vehicle at the front of the building and departed with daughter driving.
[2020-09-21] MEDS ORDERED: PROP10TA10 PO (15:58)
[2020-09-21] MEDS ORDERED: FERR325T28 PO (15:58)
[2020-09-21] MEDS ORDERED: ASCO-134 PO (15:58)
== END 2020-09-21 15:33 | disposition home or self-care (01) | DRG 194 ==
LOC: ER 19:49 → ED HOLD 09-13 01:31 → PCU 3S 09-13 02:40
PROVIDERS: ADMIT Internal Medicine; ATTEND Internal Medicine
PROC: B2261ZZ Computerized Tomography (CT Scan) of Right and Left Heart using Low Osmolar Contrast (ICD-10-PCS; 2020-09-12)
PROC: 30233N1 Transfusion of Nonautologous Red Blood Cells into Peripheral Vein, Percutaneous Approach (ICD-10-PCS; principal; 2020-09-14)
DX: I50.33 Acute on chronic diastolic (congestive) heart failure (principal); I21.A1 Myocardial infarction type 2; J96.20 Acute and chronic respiratory failure, unspecified whether with hypoxia or hypercapnia; J18.9 Pneumonia, unspecified organism; J91.8 Pleural effusion in other conditions classified elsewhere; K74.60 Unspecified cirrhosis of liver; J44.0 Chronic obstructive pulmonary disease with (acute) lower respiratory infection; F17.200 Nicotine dependence, unspecified, uncomplicated; F15.10 Other stimulant abuse, uncomplicated; F41.9 Anxiety disorder, unspecified; Z80.1 Family history of malignant neoplasm of trachea, bronchus and lung; Z79.899 Other long term (current) drug therapy; D64.9 Anemia, unspecified; J44.1 Chronic obstructive pulmonary disease with (acute) exacerbation; F10.10 Alcohol abuse, uncomplicated; Y90.9 Presence of alcohol in blood, level not specified; R19.5 Other fecal abnormalities; Z91.19 Patient's noncompliance with other medical treatment and regimen; I25.2 Old myocardial infarction; K29.70 Gastritis, unspecified, without bleeding; Z59.0 Homelessness; I86.4 Gastric varices; Z20.822 Contact with and (suspected) exposure to COVID-19
CPT/HCPCS: 36415; 36430; 43235; 71045; 71275; 76700; 78452; 80053; 80305; 82272; 82728; 83540; 83550; 83735; 83880; 84100; 84443; 84484; 85007; 85008; 85025; 85610; 85730; 86703; 86705; 86706; 86709; 86803; 86885; 86900; 86901; 86920; 87040; 87081; 87340; 87635; 93005; 93017; 93306; 94640; 94667; 94668; 94760; 96365; 96375; 97110; 97116; 97162; 97530; 99152; 99285; A9500; C9113; C9803; G0378; J0456; J0696; J1644; J1940; J2250; J2354; J2785; J2916; J2930; J3010; J7040; J7626; P9016; Q0163; Q9967

== ENCOUNTER 2020-09-23 14:15 | Inpatient (IN) | payer MEDICAID ==
[~2020-09-23] VITALS: Ht 152.4 cm; Wt 55.5 kg
[~2020-09-23 14:15] MED LIST: ALBU8.5H8 INH; ASCO-134 PO; BUDE10.22 INH; CEFD300C3 PO; FERR325T28 PO; FURO-150 PO; LACT1CAP26 PO; LISI-790 PO; OLAN5TAB5 PO; PANT40TA54 PO; POTA10CA44 PO; PRED10TA23 PO; PROP10TA10 PO; SPIR50TA5 PO
--- NOTE | 2020-09-23 15:14 | NUR ---
Patient is combative and disoriented. Unable to obtain xray. Dr. Jerry aware.
[2020-09-23 15:20] LABS: LYMPHOCYTES # (AUTO) 1.3 X10'3 (1.1-4.8); MEAN CORPUSCULAR VOLUME 93.2 FL (78-98); MONOCYTES # (AUTO) 1.9 X10'3 (0-0.9)
[2020-09-23 15:22] LABS: BASOPHILS % (AUTO) 0.2 % (0-1); EOSINOPHILS # (AUTO) 0.2 X10'3 (0-0.9); EOSINOPHILS % (AUTO) 1.3 % (0-6); HEMATOCRIT 31.6 % (35.0-45.0); LYMPHOCYTES % (AUTO) 11.3 % (21-51); MEAN CORPUSCULAR HEMOGLOBIN 29.6 PG (27.0-31.0); MEAN CORPUSCULAR HGB CONC 31.7 g/dL (33.0-36.5); MEAN PLATELET VOLUME 9.3 FL (7.4-10.4); MONOCYTES % (AUTO) 16.1 % (2-12); NEUTROPHILS # (AUTO) 8.4 X10'3 (1.8-7.7); NEUTROPHILS % (AUTO) 71.1 % (42-75); PLATELET COUNT 181 X10'3 (140-440); RED BLOOD COUNT 3.39 X10'6 (4.20-5.60); RED CELL DISTRIBUTION WIDTH 19.5 % (11.5-14.5); WHITE BLOOD COUNT 11.8 X10'3 (4.5-11.0)
[2020-09-23 15:44] LABS: ALANINE AMINOTRANSFERASE 72 U/L (12-78); ALBUMIN/GLOBULIN RATIO 0.4 (1.1-1.5); ANION GAP 2 (8-16); ASPARTATE AMINO TRANSFERASE 73 U/L (10-37); BILIRUBIN,TOTAL 1.9 MG/DL (0.1-1.0); BLOOD UREA NITROGEN 24 MG/DL (7-18); BUN/CREATININE RATIO 42.1 (6.6-38.0); CALCIUM 7.7 MG/DL (8.5-10.1); CHLORIDE 107 MMOL/L (99-107); CREATININE 0.57 MG/DL (0.40-0.90); GLUCOSE 107 MG/DL (70-104); SODIUM 141 MMOL/L (135-145); TOTAL CARBON DIOXIDE 32.4 MMOL/L (24-32); TOTAL PROTEIN 7.2 G/DL (6.4-8.2); TROPONIN I < 0.04 NG/ML (0.0-0.05); eGFR > 90 ML/MIN
[2020-09-23 15:49] LABS: ETHANOL < 0.010 GM/DL (0.0-0.010)
[2020-09-23 15:54] LABS: ALKALINE PHOSPHATASE 262 IU/L (46-116)
[2020-09-23 17:02] LABS: NUCLEATED RED BLOOD CELLS 2 /100WBC (0-0); TOTAL CELLS COUNTED 100
[2020-09-23 17:05] LABS: ANISOCYTOSIS 2+; HYPOCHROMASIA 1+; PLATELET ESTIMATE NORMAL; POLYCHROMASIA 1+
[2020-09-23 17:06] LABS: ACANTHOCYTES FEW; SCHISTOCYTES FEW
[2020-09-23 17:41] LABS: CLARITY,URINE CLEAR (Clear); COLOR,URINE YELLOW (Yellow); GLUCOSE, URINE NEGATIVE (Neg); KETONES,URINE NEGATIVE (Neg); LEUKOCYTE ESTERASE ,URINE NEGATIVE (Neg); NITRITES, URINE NEGATIVE (Neg); OCCULT BLOOD,URINE NEGATIVE (Neg); PH,URINE 7.5 (4.8-8.0); PROTEIN,URINE NEGATIVE (Neg)
[2020-09-23 17:50] LABS: UA COLLECTION TYPE STRAIGHT CATH; URINE AMPHETAMINE SCREEN NEGATIVE (Neg); URINE BARBITUATE SCREEN NEGATIVE (Neg); URINE BENZODIAZEPINES SCREEN NEGATIVE (Neg); URINE CANNABINOID SCREEN NEGATIVE (Neg); URINE COCAINE SCREEN NEGATIVE (Neg); URINE METHADONE SCREEN NEGATIVE (Neg); URINE OPIATE SCREEN NEGATIVE (Neg); URINE PHENCYCLIDINE SCREEN NEGATIVE (Neg)
[2020-09-23] MEDS ORDERED: haloperidol lactate 5mg/ml inj IM PRN (19:30)
[2020-09-23] MEDS: normal saline 1000ml 1,000 ML IV SCH (19:30)
[2020-09-23] MEDS ORDERED: haloperidol 5mg tablet PO PRN (19:30)
[2020-09-23] MEDS ORDERED: diphenhydrAMINE 50 mg/ml inj IV PRN (19:30)
[2020-09-23] MEDS ORDERED: acetaminophen 650mg rectal suppository RC PRN (19:30)
[2020-09-23] MEDS ORDERED: ondansetron 4mg rapidly disintigrating tab PO PRN (19:30)
[2020-09-23] MEDS ORDERED: magnesium hydroxide 30ml (MOM) UD suspension PO PRN (19:30)
[2020-09-23] MEDS ORDERED: ondansetron/PF 4mg/2ml inj IV PRN (19:30)
[2020-09-23] MEDS ORDERED: dextrose 50%-water 50ml dispensing syringe IV PRN (19:30)
[2020-09-23] MEDS ORDERED: bisacodyl 10mg suppository rectal RC PRN (19:30)
[2020-09-23] MEDS ORDERED: LORazepam 1 MG tablet PO PRN (19:30)
[2020-09-23] MEDS ORDERED: mag hydrox/Alum hydrox/simeth 30ml oral suspension PO PRN ×2 (19:30)
[2020-09-23] MEDS ORDERED: loperamide 2mg capsule PO PRN (19:30)
[2020-09-23] MEDS ORDERED: diphenhydrAMINE 25mg capsule PO PRN (19:30)
[2020-09-23] MEDS ORDERED: acetaminophen 325mg tablet PO PRN ×2 (19:30)
[2020-09-23] MEDS ORDERED: morphine 2 MG/ML inj. syringe IV PRN (19:30)
[2020-09-23] MEDS: docusate sod 100mg capsule PO SCH (20:00)
[2020-09-23 20:05] LABS: PARTIAL THROMBOPLASTIN TIME 44 SECONDS (22-32)
[2020-09-23] MEDS ORDERED: ipratropium/albuterol 3ml nebule NEB PRN (20:05)
[2020-09-23 20:07] LABS: CREATINE KINASE 75 U/L (26-192); LIPASE 124 U/L (73-393); MAGNESIUM 1.8 MG/DL (1.5-2.4); PHOSPHORUS 3.3 MG/DL (2.3-4.5)
--- NOTE | 2020-09-23 20:10 | NUR ---
UPON ASSESSING PT FOUND HER TO BE ONLY MINIMALLY RESPONSIVE TO PAINFUL STIMULI. PT WILL NOT SAY ANY WORDS OR OPEN HER EYES. DR. HIDALGO CONSULTED REGARDING PT CONDITION AND HER CURRENT VITALS. DR. HIDALGO ADVISED TO GIVE A 500CC BOLUS AND WATCH FOR ANY PULMONARY EDEMA. HE ALSO ADVISED IF NO URINE OUTPUT TO CONTINUE THE BOLUS AND GIVE THE FULL LITER OF FLUID IF LUNGS ALLOW. PT LAYING ON RIGHT SIDE, STIF AND UNABLE TO FOLLOW COMMANDS AT THIS TIME.
[2020-09-23] MEDS ORDERED: normal saline 1000ML IV soln IVB ONE (20:25)
[2020-09-23] MEDS ORDERED: FERR-39 PO (20:34)
[2020-09-23] MEDS ORDERED: PROP10TA10 PO (20:34)
[2020-09-23] MEDS ORDERED: PANT-47 PO (20:34)
--- NOTE | 2020-09-23 20:59 | NUR ---
UPON ASSESSING PT IV DURING BOLUS, FOUND TO BE INFILTRATED. PT SCREAMING AND UNCOOPERATIVE FOR ADDITIONAL IV ATTEMPTS. UNABLE TO GET IV AT THIS TIME AFTER 3 SUBSEQUENT TRYS
[2020-09-23] MEDS ORDERED: temazepam 15mg capsule PO PRN (21:00)
[2020-09-24] MEDS ORDERED: normal saline 1000ML IV soln IVB ONE (01:50)
[2020-09-24 01:54] LABS: BASOPHILS % (AUTO) 0.3 % (0-1); EOSINOPHILS # (AUTO) 0.3 X10'3 (0-0.9); EOSINOPHILS % (AUTO) 2.5 % (0-6); HEMOGLOBIN 9.4 g/dl (12.0-16.0); LYMPHOCYTES # (AUTO) 1.9 X10'3 (1.1-4.8); LYMPHOCYTES % (AUTO) 16.6 % (21-51); MEAN CORPUSCULAR HEMOGLOBIN 29.6 PG (27.0-31.0); MEAN CORPUSCULAR HGB CONC 31.3 g/dL (33.0-36.5); MEAN CORPUSCULAR VOLUME 94.3 FL (78-98); MEAN PLATELET VOLUME 9.2 FL (7.4-10.4); MONOCYTES % (AUTO) 17.6 % (2-12); NEUTROPHILS # (AUTO) 7.2 X10'3 (1.8-7.7); PLATELET COUNT 181 X10'3 (140-440); RED BLOOD COUNT 3.18 X10'6 (4.20-5.60); WHITE BLOOD COUNT 11.5 X10'3 (4.5-11.0)
[2020-09-24] MEDS: lactulose 20gm/30ml cup PO SCH ×4 (02:00→19:09)
--- NOTE | 2020-09-24 02:28 | NUR ---
PT UNABLE TO TAKE HER LACTULOSE MEDICATION PO. PT IS UNCOOPERATIVE AND ALOC. DR. HIDALGO ADVISED VIA PAGE OF PT CONDITION AND HER INABILITY TO TAKE THE MEDICATION.
[2020-09-24 02:54] LABS: ALANINE AMINOTRANSFERASE 62 U/L (12-78); ALBUMIN 1.7 G/DL (3.4-5.0); ALBUMIN/GLOBULIN RATIO 0.4 (1.1-1.5); ALKALINE PHOSPHATASE 175 IU/L (46-116); ANION GAP 4 (8-16); ASPARTATE AMINO TRANSFERASE 61 U/L (10-37); BLOOD UREA NITROGEN 23 MG/DL (7-18); BUN/CREATININE RATIO 38.3 (6.6-38.0); CALCIUM 7.6 MG/DL (8.5-10.1); CHLORIDE 110 MMOL/L (99-107); GLUCOSE 82 MG/DL (70-104); POTASSIUM 4.2 MMOL/L (3.5-5.1); SODIUM 143 MMOL/L (135-145); TOTAL CARBON DIOXIDE 29.3 MMOL/L (24-32); TOTAL PROTEIN 6.3 G/DL (6.4-8.2); eGFR > 90 ML/MIN
[2020-09-24] MEDS: ipratropium/albuterol 3ml nebule NEB SCH ×2 (03:00→07:00)
[2020-09-24] MEDS: LORazepam 2 mg/ml vial IV PRN (05:56)
--- NOTE | 2020-09-24 06:20 | NUR ---
Patient in room PCU 3028. I have received report from CAN RICHARD and had the opportunity to ask questions and assume patient care.
[2020-09-24 08:00] VITALS: BP 116/71
[2020-09-24] MEDS: folic acid 1mg/0.2ml inj IV SCH (08:00)
[2020-09-24] MEDS ORDERED: methylPREDNISolone sod succ 125mg/2ml vial IV SCH (08:00)
[2020-09-24] MEDS ORDERED: thiamine inj. 100 MG in normal saline 100ml IV soln 99 ML IV SCH (08:00)
[2020-09-24] MEDS ORDERED: folic acid inj. 2 MG, thiamine inj. 100 MG, MVI, adult No.4 with vit. K 10 ML in dextro... IV SCH ×4 (08:00)
[2020-09-24] MEDS: docusate sod 100mg capsule PO SCH ×2 (09:13→19:09)
[2020-09-24] MEDS: MULTIVIT-MIN/FERROUS GLUCONATE 9 MG/15 ML LIQUID PO SCH (09:13)
[2020-09-24] MEDS: ferrous sulfate 325mg tablet PO SCH ×2 (09:13→19:09)
[2020-09-24] MEDS: pantoprazole 40mg Tablet.DR PO SCH (09:13)
[2020-09-24] MEDS: propranolol 10mg tablet PO SCH (09:13)
[2020-09-24] MEDS: HYDROcodone/acetaminophen 5mg/325mg tablet PO PRN ×2 (09:14→16:34)
[2020-09-24] MEDS: nicotine 14mg patch - 24hr TD SCH (09:14)
[2020-09-24] MEDS: azithromycin/NS 500mg/250ml 250 ML IV SCH (09:21)
[2020-09-24] MEDS: CefTRIAXone/D5W-Rocephin 1gm 50 ML IV SCH (09:22)
[2020-09-24] MEDS: OLANZapine 5mg rapidly disint. tablet PO SCH (09:22)
[2020-09-24 11:36] VITALS: BP 129/63
[2020-09-24] MEDS: normal saline 1000ml 1,000 ML IV SCH (15:30)
[2020-09-24 15:51] VITALS: BP 106/55
[2020-09-24 19:00] VITALS: BP 99/41
[2020-09-24] MEDS: rifaximin 550mg tablet PO SCH (19:12)
[2020-09-24] MEDS: methylPREDNISolone sod succ/PF 40mg inj. IV SCH (20:56)
[2020-09-25] MEDS: lactulose 20gm/30ml cup PO SCH ×4 (02:00→20:07)
[2020-09-25 06:51] LABS: ALANINE AMINOTRANSFERASE 56 U/L (12-78); ALBUMIN 1.5 G/DL (3.4-5.0); ALBUMIN/GLOBULIN RATIO 0.3 (1.1-1.5); ALKALINE PHOSPHATASE 130 IU/L (46-116); ANION GAP 3 (8-16); ASPARTATE AMINO TRANSFERASE 51 U/L (10-37); BILIRUBIN,TOTAL 1.5 MG/DL (0.1-1.0); BLOOD UREA NITROGEN 28 MG/DL (7-18); BUN/CREATININE RATIO 41.8 (6.6-38.0); CALCIUM 7.6 MG/DL (8.5-10.1); CHLORIDE 111 MMOL/L (99-107); CREATININE 0.67 MG/DL (0.40-0.90); POTASSIUM 4.3 MMOL/L (3.5-5.1); SODIUM 142 MMOL/L (135-145); TOTAL CARBON DIOXIDE 28.1 MMOL/L (24-32); TOTAL PROTEIN 5.8 G/DL (6.4-8.2); eGFR 90 ML/MIN
[2020-09-25 06:52] LABS: GLUCOSE 151 MG/DL (70-104)
[2020-09-25 07:00] VITALS: BP 106/49
[2020-09-25 07:14] LABS: BASOPHILS % (AUTO) 0.3 % (0-1); EOSINOPHILS % (AUTO) 0 % (0-6); HEMATOCRIT 28.6 % (35.0-45.0); HEMOGLOBIN 9.1 g/dl (12.0-16.0); LYMPHOCYTES # (AUTO) 0.9 X10'3 (1.1-4.8); LYMPHOCYTES % (AUTO) 7.4 % (21-51); MEAN CORPUSCULAR HGB CONC 31.7 g/dL (33.0-36.5); MEAN CORPUSCULAR VOLUME 94.7 FL (78-98); MEAN PLATELET VOLUME 9.3 FL (7.4-10.4); MONOCYTES # (AUTO) 0.8 X10'3 (0-0.9); MONOCYTES % (AUTO) 6.5 % (2-12); NEUTROPHILS # (AUTO) 10.6 X10'3 (1.8-7.7); NEUTROPHILS % (AUTO) 85.8 % (42-75); PLATELET COUNT 161 X10'3 (140-440); RED BLOOD COUNT 3.02 X10'6 (4.20-5.60); RED CELL DISTRIBUTION WIDTH 19.5 % (11.5-14.5); WHITE BLOOD COUNT 12.3 X10'3 (4.5-11.0)
[2020-09-25] MEDS: OLANZapine 5mg rapidly disint. tablet PO SCH (08:03)
[2020-09-25] MEDS: propranolol 10mg tablet PO SCH (08:03)
[2020-09-25] MEDS: pantoprazole 40mg Tablet.DR PO SCH (08:03)
[2020-09-25] MEDS: MULTIVIT-MIN/FERROUS GLUCONATE 9 MG/15 ML LIQUID PO SCH (08:03)
[2020-09-25] MEDS: ferrous sulfate 325mg tablet PO SCH ×2 (08:03→20:07)
[2020-09-25] MEDS: docusate sod 100mg capsule PO SCH ×2 (08:04→20:07)
[2020-09-25] MEDS: rifaximin 550mg tablet PO SCH ×2 (08:04→20:07)
[2020-09-25] MEDS: CefTRIAXone/D5W-Rocephin 1gm 50 ML IV SCH (08:04)
[2020-09-25] MEDS: nicotine 14mg patch - 24hr TD SCH (08:04)
[2020-09-25] MEDS: methylPREDNISolone sod succ/PF 40mg inj. IV SCH ×2 (08:04→20:07)
[2020-09-25] MEDS: azithromycin/NS 500mg/250ml 250 ML IV SCH (08:22)
[2020-09-25] MEDS: folic acid 1mg/0.2ml inj IV SCH (09:19)
[2020-09-25] MEDS: folic acid 1mg tablet PO SCH (09:21)
[2020-09-25] MEDS: thiamine 100mg tablet PO SCH (09:22)
--- NOTE | 2020-09-25 10:00 | NUR ---
SPOKE WITH DR. DENNEY WHO WANTS PT TO BE TRANSFERRED TO NEURO WITH TELE. NO BEDS AT THIS TIME. NOTIFIED. NEW ORDER OF PT EVAL CARRIED OUT.
[2020-09-25 10:03] LABS: ANISOCYTOSIS 2+; PLATELET ESTIMATE NORMAL
[2020-09-25 10:04] LABS: MICROCYTOSIS 1+
[2020-09-25 10:06] LABS: BURR CELLS FEW
[2020-09-25] MEDS: normal saline 1000ml 1,000 ML IV SCH (10:59)
[2020-09-25 11:00] VITALS: BP 105/51
[2020-09-25] MEDS: ipratropium/albuterol 3ml nebule NEB SCH ×4 (12:39→23:22)
[2020-09-25] MEDS ORDERED: dextrose 50%-water 50ml dispensing syringe IV PRN ×2 (13:45)
[2020-09-25] MEDS ORDERED: glucagon, human recombinant 1mg kit SUBCUT PRN (13:45)
[2020-09-25] MEDS ORDERED: MESSAGE TO PHARMACY PO ONE (13:45)
[2020-09-25] MEDS ORDERED: dextrose ORAL solution 15 GM/59 ML bottle PO PRN ×2 (13:45)
[2020-09-25] MEDS: HYDROcodone/acetaminophen 5mg/325mg tablet PO PRN (14:02)
--- NOTE | 2020-09-25 14:22 | NUR ---
SPOKE WITH DR. DENNEY REGARDING PT NOT HAVING HUMALOG ON EMAR. ADDED GLYCEMIC PROTOCOL FOR PT. WILL START FOR 1700 BG.
[2020-09-25 15:00] VITALS: BP 114/53
[2020-09-25 18:00] VITALS: BP 102/49
[2020-09-25] MEDS: insulin glargine (Lantus) pen - multi-dose SQ SCH (21:19)
[2020-09-25] MEDS: LORazepam 2 mg/ml vial IV PRN (23:54)
[2020-09-26] MEDS: lactulose 20gm/30ml cup PO SCH ×4 (02:00→20:06)
[2020-09-26] MEDS: ipratropium/albuterol 3ml nebule NEB SCH ×6 (02:33→23:01)
[2020-09-26 06:00] VITALS: BP 141/57
--- NOTE | 2020-09-26 06:52 | NUR ---
PT REFUSED AM BG. EXPLAIN BENEFITS OF BG CHECK. PT REFUSED. WILL CONTINUE TO MONITOR
[2020-09-26 07:13] LABS: BASOPHILS % (AUTO) 0 % (0-1); EOSINOPHILS % (AUTO) 0 % (0-6); HEMATOCRIT 27.6 % (35.0-45.0); HEMOGLOBIN 8.8 g/dl (12.0-16.0); LYMPHOCYTES # (AUTO) 0.7 X10'3 (1.1-4.8); LYMPHOCYTES % (AUTO) 3.4 % (21-51); MEAN CORPUSCULAR HEMOGLOBIN 30.1 PG (27.0-31.0); MEAN CORPUSCULAR HGB CONC 31.8 g/dL (33.0-36.5); MEAN CORPUSCULAR VOLUME 94.5 FL (78-98); MEAN PLATELET VOLUME 9.2 FL (7.4-10.4); MONOCYTES # (AUTO) 1.2 X10'3 (0-0.9); MONOCYTES % (AUTO) 6.1 % (2-12); NEUTROPHILS # (AUTO) 18.5 X10'3 (1.8-7.7); NEUTROPHILS % (AUTO) 90.5 % (42-75); PLATELET COUNT 128 X10'3 (140-440); RED BLOOD COUNT 2.92 X10'6 (4.20-5.60); RED CELL DISTRIBUTION WIDTH 19.5 % (11.5-14.5); WHITE BLOOD COUNT 20.4 X10'3 (4.5-11.0)
[2020-09-26] MEDS: CefTRIAXone/D5W-Rocephin 1gm 50 ML IV SCH (07:17)
[2020-09-26 07:38] LABS: ALANINE AMINOTRANSFERASE 68 U/L (12-78); ALBUMIN 1.8 G/DL (3.4-5.0); ALBUMIN/GLOBULIN RATIO 0.4 (1.1-1.5); ALKALINE PHOSPHATASE 156 IU/L (46-116); ANION GAP 3 (8-16); ASPARTATE AMINO TRANSFERASE 53 U/L (10-37); BILIRUBIN,TOTAL 1.3 MG/DL (0.1-1.0); BLOOD UREA NITROGEN 17 MG/DL (7-18); BUN/CREATININE RATIO 32.7 (6.6-38.0); CALCIUM 7.8 MG/DL (8.5-10.1); CHLORIDE 110 MMOL/L (99-107); CREATININE 0.52 MG/DL (0.40-0.90); POTASSIUM 4.4 MMOL/L (3.5-5.1); SODIUM 141 MMOL/L (135-145); TOTAL CARBON DIOXIDE 27.9 MMOL/L (24-32); TOTAL PROTEIN 6.4 G/DL (6.4-8.2); eGFR > 90 ML/MIN
[2020-09-26 07:43] LABS: GLUCOSE 124 MG/DL (70-104)
[2020-09-26] MEDS: azithromycin/NS 500mg/250ml 250 ML IV SCH (08:16)
[2020-09-26] MEDS: normal saline 1000ml 1,000 ML IV SCH (08:16)
[2020-09-26] MEDS: OLANZapine 5mg rapidly disint. tablet PO SCH (08:17)
[2020-09-26] MEDS: methylPREDNISolone sod succ/PF 40mg inj. IV SCH ×2 (08:17→20:06)
[2020-09-26] MEDS: pantoprazole 40mg Tablet.DR PO SCH (08:17)
[2020-09-26] MEDS: nicotine 14mg patch - 24hr TD SCH (08:17)
[2020-09-26] MEDS: rifaximin 550mg tablet PO SCH ×2 (08:17→20:12)
[2020-09-26] MEDS: MULTIVIT-MIN/FERROUS GLUCONATE 9 MG/15 ML LIQUID PO SCH (08:17)
[2020-09-26] MEDS: thiamine 100mg tablet PO SCH (08:17)
[2020-09-26] MEDS: ferrous sulfate 325mg tablet PO SCH ×2 (08:17→20:06)
[2020-09-26] MEDS: folic acid 1mg tablet PO SCH (08:18)
[2020-09-26] MEDS: docusate sod 100mg capsule PO SCH ×2 (08:18→20:00)
[2020-09-26] MEDS: propranolol 10mg tablet PO SCH (08:18)
[2020-09-26 11:00] VITALS: BP 122/68
[2020-09-26 15:00] VITALS: BP 102/68
[2020-09-26 18:00] VITALS: BP 124/69
[2020-09-26] MEDS: insulin Lispro (HumaLOG) vial - multi-dose SQ SCH (19:57)
[2020-09-26] MEDS: insulin glargine (Lantus) pen - multi-dose SQ SCH (22:14)
[2020-09-27 02:00] VITALS: BP 131/70
[2020-09-27] MEDS: lactulose 20gm/30ml cup PO SCH ×4 (02:00→20:00)
[2020-09-27] MEDS: ipratropium/albuterol 3ml nebule NEB SCH ×6 (03:14→23:11)
[2020-09-27 06:00] VITALS: BP 102/63
--- NOTE | 2020-09-27 06:10 | NUR ---
Problems reprioritized. Patient report given, questions answered & plan of care reviewed with HILARY MCKENNA.
[2020-09-27 07:10] LABS: BASOPHILS % (AUTO) 0.1 % (0-1); EOSINOPHILS % (AUTO) 0 % (0-6); HEMATOCRIT 26.3 % (35.0-45.0); HEMOGLOBIN 8.3 g/dl (12.0-16.0); LYMPHOCYTES # (AUTO) 0.7 X10'3 (1.1-4.8); LYMPHOCYTES % (AUTO) 4.3 % (21-51); MEAN CORPUSCULAR HEMOGLOBIN 30.3 PG (27.0-31.0); MEAN CORPUSCULAR HGB CONC 31.7 g/dL (33.0-36.5); MEAN CORPUSCULAR VOLUME 95.6 FL (78-98); MEAN PLATELET VOLUME 9.3 FL (7.4-10.4); MONOCYTES # (AUTO) 1.3 X10'3 (0-0.9); MONOCYTES % (AUTO) 8.1 % (2-12); NEUTROPHILS # (AUTO) 13.6 X10'3 (1.8-7.7); NEUTROPHILS % (AUTO) 87.5 % (42-75); PLATELET COUNT 121 X10'3 (140-440); RED BLOOD COUNT 2.76 X10'6 (4.20-5.60); RED CELL DISTRIBUTION WIDTH 21.1 % (11.5-14.5); WHITE BLOOD COUNT 15.6 X10'3 (4.5-11.0)
[2020-09-27 07:41] LABS: ANISOCYTOSIS 3+; PLATELET ESTIMATE DECREASED; POIKILOCYTOSIS FEW; POLYCHROMASIA FEW
[2020-09-27 07:42] LABS: ALANINE AMINOTRANSFERASE 69 U/L (12-78); ALBUMIN 1.7 G/DL (3.4-5.0); ALBUMIN/GLOBULIN RATIO 0.4 (1.1-1.5); ALKALINE PHOSPHATASE 139 IU/L (46-116); ANION GAP 6 (8-16); ASPARTATE AMINO TRANSFERASE 57 U/L (10-37); BILIRUBIN,TOTAL 1.3 MG/DL (0.1-1.0); BLOOD UREA NITROGEN 14 MG/DL (7-18); CALCIUM 7.7 MG/DL (8.5-10.1); CHLORIDE 109 MMOL/L (99-107); GLUCOSE 121 MG/DL (70-104); POTASSIUM 4.4 MMOL/L (3.5-5.1); SODIUM 141 MMOL/L (135-145); TOTAL CARBON DIOXIDE 26.1 MMOL/L (24-32); TOTAL PROTEIN 5.9 G/DL (6.4-8.2); eGFR > 90 ML/MIN
[2020-09-27] MEDS: docusate sod 100mg capsule PO SCH ×2 (08:00→20:00)
[2020-09-27] MEDS: normal saline 1000ml 1,000 ML IV SCH ×2 (08:04→23:30)
[2020-09-27] MEDS: CefTRIAXone/D5W-Rocephin 1gm 50 ML IV SCH (08:06)
[2020-09-27] MEDS: azithromycin/NS 500mg/250ml 250 ML IV SCH (08:06)
[2020-09-27] MEDS: propranolol 10mg tablet PO SCH (08:07)
[2020-09-27] MEDS: ferrous sulfate 325mg tablet PO SCH ×2 (08:08→20:44)
[2020-09-27] MEDS: rifaximin 550mg tablet PO SCH ×2 (08:08→20:44)
[2020-09-27] MEDS: thiamine 100mg tablet PO SCH (08:08)
[2020-09-27] MEDS: nicotine 14mg patch - 24hr TD SCH (08:08)
[2020-09-27] MEDS: MULTIVIT-MIN/FERROUS GLUCONATE 9 MG/15 ML LIQUID PO SCH (08:08)
[2020-09-27] MEDS: folic acid 1mg tablet PO SCH (08:08)
[2020-09-27] MEDS: pantoprazole 40mg Tablet.DR PO SCH (08:08)
[2020-09-27] MEDS: OLANZapine 5mg rapidly disint. tablet PO SCH (08:08)
[2020-09-27] MEDS: methylPREDNISolone sod succ/PF 40mg inj. IV SCH ×2 (08:09→20:43)
--- NOTE | 2020-09-27 08:25 | NUR ---
Initial: Pt admit for metabolic encephalopathy secondary to hepatic encephalopathy and COPD exacerbation. Pt with EtOH hx, receiving routine MVM with iron, Thiamine, and Folic acid. Pt initially on a heart healthy diet however now on a CHO controlled diet, initially refused the first three meals though up to average 75-100% PO intake the following meals meeting estimated nutrient needs. Pt with no PMH DM with A1c 5.0%, BG range 82-251 mg/dL throughout LOS likely elevated at times r/t Solumedrol, on glycemic protocol. CHO controlled diet not indicated at this time. Recommend diet change to heart healthy. LBM 09/26. No nutrition intervention implemented at this time. Will continue to follow. Recommendations: 1) Diet change to heart healthy; CHO controlled diet not indicated d/t A1c 5.0% and elevated BG levels likely r/t steroids- on glycemic protocol 2) Monitor need for additional protein for satiety 3) Continue routine Thiamine, Folic acid, and MVM with iron for EtOH hx 4) Bowel care per rx 5) Scaled weight this admit; weekly scaled weights thereafter Addendum: 09/27/20 at [address] Amended: Links added.
[2020-09-27] MEDS: insulin Lispro (HumaLOG) vial - multi-dose SQ SCH ×3 (10:19→19:13)
[2020-09-27 11:00] VITALS: BP 103/79
[2020-09-27 15:00] VITALS: BP 129/83
[2020-09-27 18:00] VITALS: BP 121/63
[2020-09-27] MEDS: insulin glargine (Lantus) pen - multi-dose SQ SCH (22:10)
[2020-09-27 23:49] VITALS: BP 153/72
[2020-09-28 02:00] VITALS: BP 134/64
[2020-09-28] MEDS: lactulose 20gm/30ml cup PO SCH ×4 (02:00→20:34)
[2020-09-28] MEDS: ipratropium/albuterol 3ml nebule NEB SCH ×6 (02:51→23:15)
--- NOTE | 2020-09-28 05:57 | NUR ---
Problems reprioritized. Patient report given, questions answered & plan of care reviewed with HILARY MCKENNA.
[2020-09-28 06:17] LABS: BASOPHILS % (AUTO) 0.2 % (0-1); EOSINOPHILS % (AUTO) 0 % (0-6); HEMATOCRIT 28.5 % (35.0-45.0); HEMOGLOBIN 9.2 g/dl (12.0-16.0); LYMPHOCYTES # (AUTO) 0.5 X10'3 (1.1-4.8); MEAN CORPUSCULAR HEMOGLOBIN 30.6 PG (27.0-31.0); MEAN CORPUSCULAR HGB CONC 32.3 g/dL (33.0-36.5); MEAN CORPUSCULAR VOLUME 94.7 FL (78-98); MONOCYTES # (AUTO) 1.1 X10'3 (0-0.9); MONOCYTES % (AUTO) 8.1 % (2-12); NEUTROPHILS # (AUTO) 11.8 X10'3 (1.8-7.7); NEUTROPHILS % (AUTO) 87.7 % (42-75); PLATELET COUNT 101 X10'3 (140-440); RED BLOOD COUNT 3.01 X10'6 (4.20-5.60); RED CELL DISTRIBUTION WIDTH 25.3 % (11.5-14.5); WHITE BLOOD COUNT 13.5 X10'3 (4.5-11.0)
[2020-09-28 06:26] LABS: ALANINE AMINOTRANSFERASE 76 U/L (12-78); ALBUMIN 1.7 G/DL (3.4-5.0); ALBUMIN/GLOBULIN RATIO 0.4 (1.1-1.5); ALKALINE PHOSPHATASE 159 IU/L (46-116); ANION GAP 0 (8-16); ASPARTATE AMINO TRANSFERASE 57 U/L (10-37); BILIRUBIN,TOTAL 1.3 MG/DL (0.1-1.0); BLOOD UREA NITROGEN 13 MG/DL (7-18); BUN/CREATININE RATIO 24.5 (6.6-38.0); CALCIUM 7.5 MG/DL (8.5-10.1); CHLORIDE 108 MMOL/L (99-107); CREATININE 0.53 MG/DL (0.40-0.90); GLUCOSE 152 MG/DL (70-104); POTASSIUM 4.1 MMOL/L (3.5-5.1); SODIUM 139 MMOL/L (135-145); TOTAL PROTEIN 6.1 G/DL (6.4-8.2); eGFR > 90 ML/MIN
[2020-09-28 07:00] VITALS: BP 128/61
[2020-09-28 07:46] LABS: ACANTHOCYTES FEW; ANISOCYTOSIS 3+; PLATELET ESTIMATE DECREASED; SCHISTOCYTES FEW; TARGET CELLS FEW
[2020-09-28] MEDS: docusate sod 100mg capsule PO SCH ×2 (08:00→20:34)
[2020-09-28] MEDS: CefTRIAXone/D5W-Rocephin 1gm 50 ML IV SCH (08:02)
[2020-09-28] MEDS: azithromycin/NS 500mg/250ml 250 ML IV SCH (08:04)
[2020-09-28] MEDS: ferrous sulfate 325mg tablet PO SCH ×2 (08:05→20:34)
[2020-09-28] MEDS: MULTIVIT-MIN/FERROUS GLUCONATE 9 MG/15 ML LIQUID PO SCH (08:05)
[2020-09-28] MEDS: folic acid 1mg tablet PO SCH (08:06)
[2020-09-28] MEDS: pantoprazole 40mg Tablet.DR PO SCH (08:06)
[2020-09-28] MEDS: OLANZapine 5mg rapidly disint. tablet PO SCH (08:06)
[2020-09-28] MEDS: propranolol 10mg tablet PO SCH (08:06)
[2020-09-28] MEDS: rifaximin 550mg tablet PO SCH ×2 (08:06→20:34)
[2020-09-28] MEDS: thiamine 100mg tablet PO SCH (08:06)
[2020-09-28] MEDS: nicotine 14mg patch - 24hr TD SCH (08:07)
[2020-09-28] MEDS: methylPREDNISolone sod succ/PF 40mg inj. IV SCH ×2 (08:09→20:34)
[2020-09-28] MEDS: insulin Lispro (HumaLOG) vial - multi-dose SQ SCH ×3 (09:21→19:20)
[2020-09-28 11:00] VITALS: BP 144/64
[2020-09-28 15:39] VITALS: BP 146/75
[2020-09-28 18:00] VITALS: BP 155/63
--- NOTE | 2020-09-28 18:39 | NUR ---
Patient in room PCU 3028. I have received report from HILARY MCKENNA and had the opportunity to ask questions and assume patient care.
[2020-09-28] MEDS: normal saline 1000ml 1,000 ML IV SCH (19:30)
[2020-09-28] MEDS: insulin glargine (Lantus) pen - multi-dose SQ SCH (21:56)
[2020-09-28 22:30] VITALS: BP 173/81
--- NOTE | 2020-09-28 22:50 | NUR ---
RC'D VERBAL REPORT ON PATIENT AND ASSUMED CARE OF PATIENT WHEN SHE ARRIVED ON THE ORTHO/NEURO UNIT. ARRIVED VIA W/C AND TRANSFERRED TO BED WITH MINIMAL ASSIST. ORIENTED PATIENT TO ROOM AND CALL LIGHT SYSTEM. CALL LIGHT IN REACH AND PATIENT AGREED TO CALL FOR HELP IF SHE NEEDS TO HAVE A BM. BED LOW, LOCKED AND PATIENT IN SIGHT OF NURSES STATION. AGREE WITH RN ASSMT.
[2020-09-29] MEDS: normal saline 1000ml 1,000 ML IV SCH (01:25)
--- NOTE | 2020-09-29 01:26 | NUR ---
NS ADMINISTERED BUT WASN'T ABLE TO SCAN. SCANNER WOULD NOT WORK ON [employer].
[2020-09-29] MEDS: lactulose 20gm/30ml cup PO SCH ×3 (02:07→14:00)
[2020-09-29] MEDS: ipratropium/albuterol 3ml nebule NEB SCH ×5 (03:00→19:19)
[2020-09-29 06:00] VITALS: BP 114/56
--- NOTE | 2020-09-29 06:05 | NUR ---
REPORT TO EARLY SHIFT RN
[2020-09-29] MEDS ORDERED: azithromycin 250mg tablet PO SCH (08:00)
[2020-09-29] MEDS: methylPREDNISolone sod succ/PF 40mg inj. IV SCH (08:24)
[2020-09-29] MEDS: MULTIVIT-MIN/FERROUS GLUCONATE 9 MG/15 ML LIQUID PO SCH (08:24)
[2020-09-29] MEDS: nicotine 14mg patch - 24hr TD SCH (08:26)
[2020-09-29] MEDS: ferrous sulfate 325mg tablet PO SCH (08:27)
[2020-09-29] MEDS: folic acid 1mg tablet PO SCH (08:27)
[2020-09-29] MEDS: propranolol 10mg tablet PO SCH (08:28)
[2020-09-29] MEDS: docusate sod 100mg capsule PO SCH (08:28)
[2020-09-29] MEDS: thiamine 100mg tablet PO SCH (08:28)
[2020-09-29] MEDS: OLANZapine 5mg rapidly disint. tablet PO SCH (08:28)
[2020-09-29] MEDS: pantoprazole 40mg Tablet.DR PO SCH (08:28)
[2020-09-29] MEDS: rifaximin 550mg tablet PO SCH (08:29)
[2020-09-29] MEDS: CefTRIAXone/D5W-Rocephin 1gm 50 ML IV SCH (08:32)
[2020-09-29] MEDS: insulin Lispro (HumaLOG) vial - multi-dose SQ SCH (08:45)
[2020-09-29 11:00] VITALS: BP 141/70
[2020-09-29] MEDS: HYDROcodone/acetaminophen 5mg/325mg tablet PO PRN (11:06)
[2020-09-29] MEDS ORDERED: LACT10SO32 PO (13:01)
[2020-09-29] MEDS ORDERED: NICO-631 TD (13:01)
[2020-09-29] MEDS ORDERED: RIFA550T PO (13:01)
--- NOTE | 2020-09-29 16:29 | NUR ---
LACTULOSE NOT GIVEN FOR 1400 DOSE, FAMILY COMING TO PROPERTY ACCOUNTANT PATIENT AND THEY HAVE A LONG DRIVE, DO NOT WANT DIAHREAH IN CAR.
[2020-09-29 18:00] VITALS: BP 106/61
--- NOTE | 2020-09-29 19:34 | NUR ---
Report given to Alexia RICHARD, harpreet Magaña here to brain picker patient. Taryn daughter and I have spoken extensively on the phone and she understands discharge instructions. Will reiterate to Archana discharge instructions as well.
[2020-09-29] MEDS ORDERED: lactobacillus rhamnosus 10,000 MMU CELLS/CAPSULE PO SCH (20:00)
[2020-09-30] MEDS ORDERED: pantoprazole 40mg Tablet.DR PO SCH (07:30)
[2020-09-30] MEDS ORDERED: predniSONE 20 mg tablet PO SCH (08:00)
== END 2020-09-29 19:54 | disposition home or self-care (01) | DRG 279 ==
LOC: ER 14:15 → ED HOLD 19:26 → PCU 3S 09-24 06:58 → ORTHO 4S 09-28 22:37
PROVIDERS: ADMIT Family Medicine; ATTEND Family Medicine
DX: K72.90 Hepatic failure, unspecified without coma (principal); G93.41 Metabolic encephalopathy; D68.9 Coagulation defect, unspecified; K76.6 Portal hypertension; E88.09 Other disorders of plasma-protein metabolism, not elsewhere classified; J44.1 Chronic obstructive pulmonary disease with (acute) exacerbation; D64.9 Anemia, unspecified; K70.30 Alcoholic cirrhosis of liver without ascites; F17.200 Nicotine dependence, unspecified, uncomplicated; E87.6 Hypokalemia; F10.20 Alcohol dependence, uncomplicated; F39 Unspecified mood [affective] disorder; I10 Essential (primary) hypertension; I25.10 Atherosclerotic heart disease of native coronary artery without angina pectoris; R09.02 Hypoxemia; R01.1 Cardiac murmur, unspecified; Z88.2 Allergy status to sulfonamides; I25.2 Old myocardial infarction; Z79.899 Other long term (current) drug therapy; Z71.6 Tobacco abuse counseling
CPT/HCPCS: 36415; 70450; 71045; 80053; 80305; 80320; 81003; 82140; 82550; 82948; 83036; 83605; 83690; 83735; 83880; 84100; 84484; 85007; 85008; 85025; 85610; 85730; 87040; 87081; 93005; 94640; 94760; 97116; 97161; 97530; 97535; 99285; G0378; J0456; J0696; J1630; J1815; J2060; J2920; J2930; J3411; J3490; J7030

== ENCOUNTER 2020-10-06 23:46 | Inpatient (IN) | payer MEDICAID ==
[~2020-10-06] VITALS: Ht 149.9 cm; Wt 48.0 kg
[~2020-10-06 23:46] MED LIST changes: -ALBU8.5H8 INH; -ASCO-134 PO; -BUDE10.22 INH; -CEFD300C3 PO; +FERR-39 PO; -FERR325T28 PO; +LACT10SO32 PO; -LACT1CAP26 PO; +NICO-631 TD; +PANT-47 PO; -PANT40TA54 PO; +RIFA550T PO
[2020-10-07 01:30] LABS: BASOPHILS % (AUTO) 0.5 % (0-1); EOSINOPHILS # (AUTO) 0.2 X10'3 (0-0.9); EOSINOPHILS % (AUTO) 1.6 % (0-6); HEMATOCRIT 29.2 % (35.0-45.0); HEMOGLOBIN 9.5 g/dl (12.0-16.0); LYMPHOCYTES # (AUTO) 1.4 X10'3 (1.1-4.8); LYMPHOCYTES % (AUTO) 14.7 % (21-51); MEAN CORPUSCULAR HEMOGLOBIN 32.1 PG (27.0-31.0); MEAN CORPUSCULAR HGB CONC 32.6 g/dL (33.0-36.5); MEAN CORPUSCULAR VOLUME 98.4 FL (78-98); MEAN PLATELET VOLUME 11.8 FL (7.4-10.4); MONOCYTES # (AUTO) 1.9 X10'3 (0-0.9); MONOCYTES % (AUTO) 20.1 % (2-12); NEUTROPHILS % (AUTO) 63.1 % (42-75); PLATELET COUNT 54 X10'3 (140-440); RED BLOOD COUNT 2.97 X10'6 (4.20-5.60); RED CELL DISTRIBUTION WIDTH 31.1 % (11.5-14.5); WHITE BLOOD COUNT 9.5 X10'3 (4.5-11.0)
[2020-10-07 01:47] LABS: ALANINE AMINOTRANSFERASE 64 U/L (12-78); ALBUMIN 1.9 G/DL (3.4-5.0); ALKALINE PHOSPHATASE 239 IU/L (46-116); ANION GAP 3 (8-16); ASPARTATE AMINO TRANSFERASE 56 U/L (10-37); BILIRUBIN,TOTAL 3.7 MG/DL (0.1-1.0); BLOOD UREA NITROGEN 14 MG/DL (7-18); BUN/CREATININE RATIO 29.2 (6.6-38.0); CALCIUM 7.4 MG/DL (8.5-10.1); CHLORIDE 105 MMOL/L (99-107); CREATININE 0.48 MG/DL (0.40-0.90); GLUCOSE 70 MG/DL (70-104); POTASSIUM 4.6 MMOL/L (3.5-5.1); SODIUM 135 MMOL/L (135-145); TOTAL CARBON DIOXIDE 26.8 MMOL/L (24-32); eGFR > 90 ML/MIN
[2020-10-07 02:09] LABS: ALBUMIN/GLOBULIN RATIO 0.5 (1.1-1.5); TOTAL PROTEIN 6.1 G/DL (6.4-8.2)
[2020-10-07 02:57] LABS: ANISOCYTOSIS 3+; PLATELET ESTIMATE DECREASED; TOTAL CELLS COUNTED 100
[2020-10-07 02:58] LABS: ACANTHOCYTES FEW; HYPOCHROMASIA 1+; SCHISTOCYTES FEW; TARGET CELLS FEW
[2020-10-07] MEDS ORDERED: acetaminophen 325mg tablet PO PRN (03:30)
[2020-10-07] MEDS ORDERED: potassium Cl 40MEQ/1/2NS 520ml 520 ML IV PRN ×2 (03:30)
[2020-10-07] MEDS ORDERED: magnesium hydroxide 30ml (MOM) UD suspension PO PRN (03:30)
[2020-10-07] MEDS ORDERED: potassium Cl 20 mEq SR tablet PO PRN ×2 (03:30)
[2020-10-07] MEDS ORDERED: ondansetron/PF 4mg/2ml inj IV PRN (03:30)
[2020-10-07] MEDS ORDERED: mag hydrox/Alum hydrox/simeth 30ml oral suspension PO PRN (03:30)
[2020-10-07] MEDS ORDERED: LACT10SO3 PO (03:33)
[2020-10-07] MEDS ORDERED: RIFA550T PO (03:35)
[2020-10-07] MEDS: normal saline 1000ml 1,000 ML IV SCH (04:08)
[2020-10-07] MEDS: lactulose 20gm/30ml cup PO SCH ×6 (04:08→20:28)
--- NOTE | 2020-10-07 07:34 | NUR ---
PT UP TO BSC WITH ASST. VOIDED CLEAR YELLOW URINE. LARGE SOFT YELLOWISH BM.
--- NOTE | 2020-10-07 07:35 | NUR ---
PT INCONT OF URINE. LINENS CHANGED. AM CARE PROVIDED.
[2020-10-07] MEDS: lisinopril 5mg tablet PO SCH (08:00)
[2020-10-07] MEDS: K and/or MAG REPLACEMENT MC SCH ×3 (08:00→20:00)
[2020-10-07] MEDS: furosemide 20MG tablet PO SCH (08:00)
[2020-10-07] MEDS: ferrous sulfate 325mg tablet PO SCH ×2 (08:20→20:28)
[2020-10-07] MEDS: OLANZapine 5mg rapidly disint. tablet PO SCH (08:20)
[2020-10-07] MEDS: propranolol 10mg tablet PO SCH (08:20)
[2020-10-07] MEDS: pantoprazole 40mg Tablet.DR PO SCH (08:20)
[2020-10-07] MEDS: spironolactone 50 MG tablet PO SCH (08:23)
[2020-10-07] MEDS: rifaximin 550mg tablet PO SCH ×2 (08:23→20:28)
[2020-10-07] MEDS ORDERED: magnesium Cl slow-release 64mg tablet PO PRN (08:30)
[2020-10-07] MEDS ORDERED: magnesium 4gm in 100ml NS 100 ML IV PRN (08:30)
--- NOTE | 2020-10-07 08:58 | NUR ---
Patient in room ED 9. I have received report from Rupa IRCHARD and had the opportunity to ask questions and assume patient care.
[2020-10-07 09:24] VITALS: BP 90/42
--- NOTE | 2020-10-07 09:50 | NUR ---
Pt states she wears 2L oxygen at home. 92% on 1L NC
[2020-10-07 11:00] VITALS: BP_SYST 107; BP_SYST 131; BP_DIAS 57; BP_DIAS 94
[2020-10-07 15:00] VITALS: BP 96/51
--- NOTE | 2020-10-07 17:58 | NUR ---
[facility] documentation: I have reviewed and agree with all interventions, assessments performed and documented by Jabari RN. [facility] Medication Administration: For this medication-pass time frame, all medication were reviewed, dispensed, administered and documented per hospital policy by Jabari RN.
[2020-10-07 18:00] VITALS: BP 93/50
--- NOTE | 2020-10-07 18:27 | NUR ---
Problems reprioritized. Patient report given, questions answered & plan of care reviewed with Ravinder RICHARD.
--- NOTE | 2020-10-07 18:35 | NUR ---
Patient in room PCU 3024. I have received report from Flaquita-HILARY/Jabari-HILARY, and had the opportunity to ask questions and assume patient care.
--- NOTE | 2020-10-07 20:00 | NUR ---
PAGER ID: [phone] MESSAGE: Camden Silva 60f, Rm [id number], admitted for hep encephalopathy with hx of cirrhosis. complaining of leg pain. Tylenol not helpful. Alert, oriented. asking for strong IV pain med. Dottie [id number]
[2020-10-07] MEDS: lactobacillus rhamnosus 10,000 MMU CELLS/CAPSULE PO SCH (20:28)
--- NOTE | 2020-10-07 20:54 | NUR ---
Patient is very rude, noncompliant, using foul language and refuses to check her vitals. Ji, the charge nurse is aware of the issue.
--- NOTE | 2020-10-07 22:10 | NUR ---
PAGER ID: [phone] MESSAGE: Camden Silva 60f, Rm [id number], admitted for hep encephalopathy with hx of cirrhosis. Allergic to Sulfa drugs. Leg pain. Refused Tylenol. AOX4. Wants stronger pain med. Loose watery BM, Insert rectal tube? . Dottie [id number] Addendum: 10/07/20 at 2219 by Ravinder Thornton RN Dr. Olvera called back and ordered Tramadol 50mg PO q6h PRN for pain, and Rectal tube insertion if needed. No other orders were given at this time.
--- NOTE | 2020-10-08 00:23 | NUR ---
patient refused her 0000 lactulose despite explaining its for her liver disease. She says she knows its for her livers but still refused. Dr. Olvera is aware of patient being non-compliant with her lactulose. Will try the 0400 scheduled lactulose. Resting comfortably at this time. Refused 2200 vitals.
--- NOTE | 2020-10-08 02:00 | NUR ---
Patient refused vitals check at 0200.
--- NOTE | 2020-10-08 02:11 | NUR ---
Patient changed her mind. Now she wants her lactulose as well as pain medication. Pt. is AOX4. Not at any distress.
[2020-10-08] MEDS: lactulose 20gm/30ml cup PO SCH ×6 (02:16→19:43)
[2020-10-08] MEDS: traMADol 50MG tablet PO PRN ×3 (02:17→19:43)
--- NOTE | 2020-10-08 02:35 | NUR ---
Rectale tube inserted. Patient tolerated well. Not under any distress. All needs are met. Addendum: 10/08/20 at 0252 by Ravinder Thornton RN Reanna-witnessed and present during the rectal tube insertion.
[2020-10-08 03:20] VITALS: BP 134/66
[2020-10-08 06:00] VITALS: BP 106/67
--- NOTE | 2020-10-08 06:25 | NUR ---
Problems reprioritized. Patient report given, questions answered & plan of care reviewed with Allan-RN.
[2020-10-08 06:47] LABS: EOSINOPHILS # (AUTO) 0.2 X10'3 (0-0.9); HEMATOCRIT 29.5 % (35.0-45.0); MEAN PLATELET VOLUME 11.7 FL (7.4-10.4); MONOCYTES # (AUTO) 1.3 X10'3 (0-0.9); NEUTROPHILS # (AUTO) 4.9 X10'3 (1.8-7.7); PLATELET COUNT 59 X10'3 (140-440); RED BLOOD COUNT 2.96 X10'6 (4.20-5.60)
[2020-10-08 06:48] LABS: BASOPHILS % (AUTO) 0.6 % (0-1); EOSINOPHILS % (AUTO) 2.9 % (0-6); HEMOGLOBIN 9.6 g/dl (12.0-16.0); LYMPHOCYTES # (AUTO) 1.1 X10'3 (1.1-4.8); LYMPHOCYTES % (AUTO) 14.5 % (21-51); MEAN CORPUSCULAR HEMOGLOBIN 32.5 PG (27.0-31.0); MEAN CORPUSCULAR HGB CONC 32.7 g/dL (33.0-36.5); MEAN CORPUSCULAR VOLUME 99.5 FL (78-98); MONOCYTES % (AUTO) 16.9 % (2-12); NEUTROPHILS % (AUTO) 65.1 % (42-75); RED CELL DISTRIBUTION WIDTH 31.5 % (11.5-14.5); WHITE BLOOD COUNT 7.5 X10'3 (4.5-11.0)
[2020-10-08 07:07] LABS: ALANINE AMINOTRANSFERASE 62 U/L (12-78); ALBUMIN 1.9 G/DL (3.4-5.0); ALKALINE PHOSPHATASE 170 IU/L (46-116); ANION GAP 6 (8-16); ASPARTATE AMINO TRANSFERASE 58 U/L (10-37); BILIRUBIN,TOTAL 4.9 MG/DL (0.1-1.0); BLOOD UREA NITROGEN 8 MG/DL (7-18); BUN/CREATININE RATIO 13.3 (6.6-38.0); CALCIUM 7.6 MG/DL (8.5-10.1); CHLORIDE 111 MMOL/L (99-107); GLUCOSE 71 MG/DL (70-104); MAGNESIUM 1.6 MG/DL (1.5-2.4); POTASSIUM 4.1 MMOL/L (3.5-5.1); SODIUM 142 MMOL/L (135-145); TOTAL CARBON DIOXIDE 25.5 MMOL/L (24-32); eGFR > 90 ML/MIN
[2020-10-08 07:16] LABS: ALBUMIN/GLOBULIN RATIO 0.5 (1.1-1.5); PHOSPHORUS 2.8 MG/DL (2.3-4.5)
[2020-10-08 07:22] LABS: ANISOCYTOSIS 3+; PLATELET ESTIMATE DECREASED; TOTAL CELLS COUNTED 100
[2020-10-08 07:23] LABS: HYPOCHROMASIA 1+; LARGE PLATELETS FEW
[2020-10-08 07:24] LABS: ACANTHOCYTES FEW; BURR CELLS FEW; SCHISTOCYTES FEW
[2020-10-08] MEDS: spironolactone 50 MG tablet PO SCH (07:48)
[2020-10-08] MEDS: ferrous sulfate 325mg tablet PO SCH ×2 (07:48→19:43)
[2020-10-08] MEDS: lactobacillus rhamnosus 10,000 MMU CELLS/CAPSULE PO SCH ×2 (07:48→19:43)
[2020-10-08] MEDS: furosemide 20MG tablet PO SCH (07:48)
[2020-10-08] MEDS: lisinopril 5mg tablet PO SCH (07:48)
[2020-10-08] MEDS: rifaximin 550mg tablet PO SCH ×2 (08:00→19:43)
[2020-10-08] MEDS: propranolol 10mg tablet PO SCH (08:00)
[2020-10-08] MEDS: K and/or MAG REPLACEMENT MC SCH ×4 (08:00→20:00)
[2020-10-08] MEDS: OLANZapine 5mg rapidly disint. tablet PO SCH (08:21)
[2020-10-08] MEDS: pantoprazole 40mg Tablet.DR PO SCH (08:22)
[2020-10-08 11:00] VITALS: BP 98/44
[2020-10-08 15:00] VITALS: BP 97/43
[2020-10-08 18:00] VITALS: BP 101/48
--- NOTE | 2020-10-08 18:25 | NUR ---
Patient in room PCU 3024. I have received report from Luis, and had the opportunity to ask questions and assume patient care.
[2020-10-08 22:00] VITALS: BP 111/51
--- NOTE | 2020-10-08 23:07 | NUR ---
Rectal tube came out. Will not gonna insert another rectal tube. Patient still has diarrhea. AOX4.
--- NOTE | 2020-10-08 23:56 | NUR ---
spoke with the pharmacist regarding the patient's lactulose. Patient received lactulose at 2000. It was scheduled q4h. The next dose suppose to be at 0000. Then Dr. Smith changed the patient's lactulose to q8h starting from the midnight. Pharmacist pointed to skipped the 0000 dose and give the patient's dose at around 0400.
[2020-10-09 02:00] VITALS: BP 127/62
[2020-10-09] MEDS: lactulose 20gm/30ml cup PO SCH ×6 (03:16→19:28)
[2020-10-09] MEDS: normal saline 1000ml 1,000 ML IV SCH (03:30)
--- NOTE | 2020-10-09 03:38 | NUR ---
Noticed Dr. Smith's order for stat urine test. Patient had sudden diarrhea and urine output at the same time multiple times. Unable to collect urine. Will try to collect urine next time. AOX4, not under any distress.
[2020-10-09 06:00] VITALS: BP 118/77
--- NOTE | 2020-10-09 06:14 | NUR ---
Problems reprioritized. Patient report given, questions answered & plan of care reviewed with Allan-RN.
[2020-10-09 06:30] LABS: BASOPHILS # (AUTO) 0.1 X10'3 (0-0.2); BASOPHILS % (AUTO) 0.8 % (0-1); HEMOGLOBIN 10.2 g/dl (12.0-16.0); WHITE BLOOD COUNT 7.2 X10'3 (4.5-11.0)
[2020-10-09 06:33] LABS: EOSINOPHILS # (AUTO) 0.2 X10'3 (0-0.9); EOSINOPHILS % (AUTO) 3.3 % (0-6); HEMATOCRIT 31.5 % (35.0-45.0); LYMPHOCYTES # (AUTO) 1.4 X10'3 (1.1-4.8); MEAN CORPUSCULAR HEMOGLOBIN 32.5 PG (27.0-31.0); MEAN CORPUSCULAR HGB CONC 32.4 g/dL (33.0-36.5); MEAN CORPUSCULAR VOLUME 100.3 FL (78-98); MEAN PLATELET VOLUME 11.4 FL (7.4-10.4); MONOCYTES % (AUTO) 13.9 % (2-12); NEUTROPHILS # (AUTO) 4.5 X10'3 (1.8-7.7); PLATELET COUNT 52 X10'3 (140-440); RED BLOOD COUNT 3.14 X10'6 (4.20-5.60); RED CELL DISTRIBUTION WIDTH 31.2 % (11.5-14.5)
[2020-10-09 07:15] LABS: ALANINE AMINOTRANSFERASE 65 U/L (12-78); ALBUMIN 1.9 G/DL (3.4-5.0); ALKALINE PHOSPHATASE 195 IU/L (46-116); ANION GAP 3 (8-16); ASPARTATE AMINO TRANSFERASE 65 U/L (10-37); BILIRUBIN,TOTAL 4.9 MG/DL (0.1-1.0); BLOOD UREA NITROGEN 11 MG/DL (7-18); CHLORIDE 106 MMOL/L (99-107); GLUCOSE 115 MG/DL (70-104); MAGNESIUM 1.6 MG/DL (1.5-2.4); SODIUM 136 MMOL/L (135-145); TOTAL CARBON DIOXIDE 26.9 MMOL/L (24-32); eGFR > 90 ML/MIN
[2020-10-09 07:17] LABS: ALBUMIN/GLOBULIN RATIO 0.4 (1.1-1.5); PHOSPHORUS 3.4 MG/DL (2.3-4.5); POTASSIUM 4.8 MMOL/L (3.5-5.1); TOTAL PROTEIN 6.4 G/DL (6.4-8.2)
[2020-10-09] MEDS: K and/or MAG REPLACEMENT MC SCH ×4 (08:00→20:00)
[2020-10-09] MEDS: OLANZapine 5mg rapidly disint. tablet PO SCH (08:29)
[2020-10-09] MEDS: ferrous sulfate 325mg tablet PO SCH ×2 (08:29→19:28)
[2020-10-09] MEDS: lisinopril 5mg tablet PO SCH (08:29)
[2020-10-09] MEDS: lactobacillus rhamnosus 10,000 MMU CELLS/CAPSULE PO SCH ×2 (08:29→19:28)
[2020-10-09] MEDS: rifaximin 550mg tablet PO SCH ×2 (08:29→19:28)
[2020-10-09] MEDS: spironolactone 50 MG tablet PO SCH (08:29)
[2020-10-09] MEDS: furosemide 20MG tablet PO SCH (08:29)
[2020-10-09] MEDS: pantoprazole 40mg Tablet.DR PO SCH (08:29)
[2020-10-09] MEDS: traMADol 50MG tablet PO PRN ×2 (08:30→17:24)
[2020-10-09] MEDS: propranolol 10mg tablet PO SCH (08:30)
[2020-10-09 09:15] LABS: PLATELET ESTIMATE DECREASED
[2020-10-09 09:17] LABS: ANISOCYTOSIS 3+; SCHISTOCYTES FEW
[2020-10-09 09:18] LABS: HYPOCHROMASIA 1+
[2020-10-09 11:00] VITALS: BP 101/50
[2020-10-09 15:00] VITALS: BP 102/44
--- NOTE | 2020-10-09 17:06 | NUR ---
Upon entering room, rectal tube is seen on the floor. Pt states she does not want to receive anymore treatment, she's tired of pooping, and she does not want to be cleaned up. She states she wants to go home. will let MD aware. Addendum: 10/09/20 at 1729 by Allan RAE RN Per patient she requests ensure, soda with her meals. She has allowed other RN to catheterize for urine sample, as well as resume treatment. Patient appears in and out of confusion.
--- NOTE | 2020-10-09 17:12 | NUR ---
patricia guan: YARITZA PENA [id number]: Pt refusing urethral catheterization, as well as taking her lactulose or receiving any other treatment. This has been noted and documented. Allan RICHARD ext [phone]
[2020-10-09 18:00] VITALS: BP 91/43
[2020-10-09] MEDS: lactose-reduced food (Ensure Enlive) - 237ml bottle PO SCH (18:00)
[2020-10-09 18:26] LABS: CLARITY,URINE CLEAR (Clear); COLOR,URINE YELLOW (Yellow); GLUCOSE, URINE NEGATIVE (Neg); KETONES,URINE NEGATIVE (Neg); LEUKOCYTE ESTERASE ,URINE NEGATIVE (Neg); NITRITES, URINE NEGATIVE (Neg); OCCULT BLOOD,URINE NEGATIVE (Neg); PROTEIN,URINE NEGATIVE (Neg); UROBILINOGEN,URINE 0.2 E.U/dL (0.2-1.0)
[2020-10-09 18:32] LABS: UA COLLECTION TYPE STRAIGHT CATH
--- NOTE | 2020-10-09 18:37 | NUR ---
Patient in room PCU 3024. I have received report from Allan RICHARD and had the opportunity to ask questions and assume patient care.
[2020-10-09 18:41] LABS: URINE AMPHETAMINE SCREEN NEGATIVE (Neg); URINE BARBITUATE SCREEN NEGATIVE (Neg); URINE BENZODIAZEPINES SCREEN NEGATIVE (Neg); URINE CANNABINOID SCREEN NEGATIVE (Neg); URINE COCAINE SCREEN NEGATIVE (Neg); URINE METHADONE SCREEN NEGATIVE (Neg); URINE OPIATE SCREEN NEGATIVE (Neg); URINE PHENCYCLIDINE SCREEN NEGATIVE (Neg)
--- NOTE | 2020-10-09 19:02 | NUR ---
Patient in room PCU 3024. I have received report from Allan RICHARD and had the opportunity to ask questions and assume patient care.
[2020-10-09] MEDS: ipratropium/albuterol 3ml nebule NEB SCH ×2 (19:10→23:26)
[2020-10-09 22:00] VITALS: BP 97/43
[2020-10-10] MEDS: lactulose 20gm/30ml cup PO SCH ×5 (00:12→16:00)
[2020-10-10] MEDS: traMADol 50MG tablet PO PRN ×2 (00:14→12:51)
[2020-10-10 02:00] VITALS: BP 119/59
[2020-10-10] MEDS: ipratropium/albuterol 3ml nebule NEB SCH ×4 (02:48→19:21)
--- NOTE | 2020-10-10 05:48 | NUR ---
[facility] Medication Administration: For this medication-pass time frame, all medication were reviewed, dispensed, administered and documented per hospital policy by .
--- NOTE | 2020-10-10 05:48 | NUR ---
[facility] documentation: I have reviewed and agree with all interventions, assessments performed and documented by Annmarie RICHARD.
[2020-10-10 06:00] VITALS: BP 112/56
--- NOTE | 2020-10-10 06:00 | NUR ---
Problems reprioritized. Patient report given, questions answered & plan of care reviewed with Allan RICHARD.
--- NOTE | 2020-10-10 06:14 | NUR ---
Problems reprioritized. Patient report given, questions answered & plan of care reviewed with Allan RICHARD.
[2020-10-10 06:39] LABS: BASOPHILS # (AUTO) 0.1 X10'3 (0-0.2); EOSINOPHILS # (AUTO) 0.3 X10'3 (0-0.9); LYMPHOCYTES # (AUTO) 1.6 X10'3 (1.1-4.8); MEAN CORPUSCULAR VOLUME 99.1 FL (78-98); MONOCYTES # (AUTO) 0.9 X10'3 (0-0.9)
[2020-10-10 06:41] LABS: BASOPHILS % (AUTO) 0.7 % (0-1); EOSINOPHILS % (AUTO) 3.3 % (0-6); HEMOGLOBIN 11.1 g/dl (12.0-16.0); LYMPHOCYTES % (AUTO) 21.1 % (21-51); MEAN CORPUSCULAR HEMOGLOBIN 32.5 PG (27.0-31.0); MEAN CORPUSCULAR HGB CONC 32.8 g/dL (33.0-36.5); MEAN PLATELET VOLUME 11.9 FL (7.4-10.4); MONOCYTES % (AUTO) 11.4 % (2-12); NEUTROPHILS # (AUTO) 4.8 X10'3 (1.8-7.7); NEUTROPHILS % (AUTO) 63.5 % (42-75); PLATELET COUNT 54 X10'3 (140-440); RED BLOOD COUNT 3.43 X10'6 (4.20-5.60); RED CELL DISTRIBUTION WIDTH 31.5 % (11.5-14.5); WHITE BLOOD COUNT 7.6 X10'3 (4.5-11.0)
[2020-10-10 06:50] LABS: ALANINE AMINOTRANSFERASE 61 U/L (12-78); ALBUMIN 2.2 G/DL (3.4-5.0); ALKALINE PHOSPHATASE 232 IU/L (46-116); ANION GAP 0 (8-16); ASPARTATE AMINO TRANSFERASE 64 U/L (10-37); BILIRUBIN,TOTAL 5.4 MG/DL (0.1-1.0); BLOOD UREA NITROGEN 14 MG/DL (7-18); BUN/CREATININE RATIO 19.7 (6.6-38.0); CALCIUM 8.2 MG/DL (8.5-10.1); CHLORIDE 106 MMOL/L (99-107); CREATININE 0.71 MG/DL (0.40-0.90); MAGNESIUM 1.7 MG/DL (1.5-2.4); POTASSIUM 5.7 MMOL/L (3.5-5.1); SODIUM 138 MMOL/L (135-145); TOTAL CARBON DIOXIDE 31.8 MMOL/L (24-32); eGFR 84 ML/MIN
[2020-10-10 06:55] LABS: ALBUMIN/GLOBULIN RATIO 0.5 (1.1-1.5); GLUCOSE 95 MG/DL (70-104); PHOSPHORUS 3.8 MG/DL (2.3-4.5)
[2020-10-10] MEDS: pantoprazole 40mg Tablet.DR PO SCH (07:26)
[2020-10-10] MEDS: OLANZapine 5mg rapidly disint. tablet PO SCH (07:26)
[2020-10-10] MEDS: propranolol 10mg tablet PO SCH (07:26)
[2020-10-10] MEDS: lactobacillus rhamnosus 10,000 MMU CELLS/CAPSULE PO SCH (07:26)
[2020-10-10] MEDS: ferrous sulfate 325mg tablet PO SCH (07:26)
[2020-10-10] MEDS: rifaximin 550mg tablet PO SCH (07:26)
[2020-10-10] MEDS: furosemide 20MG tablet PO SCH (07:27)
[2020-10-10] MEDS: lisinopril 5mg tablet PO SCH (07:27)
[2020-10-10] MEDS: spironolactone 50 MG tablet PO SCH (07:27)
[2020-10-10] MEDS: lactose-reduced food (Ensure Enlive) - 237ml bottle PO SCH ×2 (08:00→13:11)
[2020-10-10] MEDS: K and/or MAG REPLACEMENT MC SCH ×2 (08:00)
[2020-10-10] MEDS ORDERED: LACT1CAP26 PO (08:55)
[2020-10-10 09:16] LABS: PLATELET ESTIMATE DECREASED
[2020-10-10 09:17] LABS: ELLIPTOCYTES FEW; SCHISTOCYTES FEW; TARGET CELLS FEW
[2020-10-10 09:18] LABS: BURR CELLS FEW
[2020-10-10 09:21] LABS: ACANTHOCYTES FEW
[2020-10-10 11:00] VITALS: BP 97/41
[2020-10-10 15:00] VITALS: BP 93/42
[2020-10-10 20:15] VITALS: BP 93/50
--- NOTE | 2020-10-10 20:34 | NUR ---
Patient left floor at 2030 via wheelchair. Vitals stable. Patient in no distress. Daughter picking up patient.
== END 2020-10-10 21:10 | disposition home or self-care (01) | DRG 279 ==
LOC: ER 23:47 → ED HOLD 10-07 03:27 → PCU 3S 10-07 09:11
PROVIDERS: ADMIT Internal Medicine; ATTEND Family Medicine
DX: K72.91 Hepatic failure, unspecified with coma (principal); I11.0 Hypertensive heart disease with heart failure; I50.9 Heart failure, unspecified; J44.9 Chronic obstructive pulmonary disease, unspecified; Z87.891 Personal history of nicotine dependence; Z91.19 Patient's noncompliance with other medical treatment and regimen; K70.30 Alcoholic cirrhosis of liver without ascites; I25.2 Old myocardial infarction; F15.10 Other stimulant abuse, uncomplicated; F10.20 Alcohol dependence, uncomplicated
CPT/HCPCS: 36415; 70450; 71045; 80053; 80305; 80320; 81003; 82140; 83735; 84100; 85007; 85008; 85025; 85610; 87081; 93005; 94640; 94760; 97161; 97530; 99285; G0378; J7030

== ENCOUNTER 2020-10-15 18:54 | Inpatient (IN) | payer MEDICAID ==
[~2020-10-15] VITALS: Ht 142.2 cm; Wt 94.9 kg
[~2020-10-15 18:54] MED LIST changes: +LACT10SO3 PO; -LACT10SO32 PO; +LACT1CAP26 PO; -PRED10TA23 PO
[2020-10-15 21:14] LABS: BASOPHILS % (AUTO) 0.6 % (0-1); EOSINOPHILS # (AUTO) 0.2 X10'3 (0-0.9); EOSINOPHILS % (AUTO) 3.2 % (0-6); HEMATOCRIT 32.3 % (35.0-45.0); HEMOGLOBIN 10.7 g/dl (12.0-16.0); LYMPHOCYTES # (AUTO) 1.4 X10'3 (1.1-4.8); LYMPHOCYTES % (AUTO) 21.1 % (21-51); MEAN CORPUSCULAR HEMOGLOBIN 33.1 PG (27.0-31.0); MEAN CORPUSCULAR HGB CONC 33.1 g/dL (33.0-36.5); MEAN CORPUSCULAR VOLUME 99.8 FL (78-98); MEAN PLATELET VOLUME 11.1 FL (7.4-10.4); MONOCYTES # (AUTO) 1.6 X10'3 (0-0.9); MONOCYTES % (AUTO) 24.5 % (2-12); NEUTROPHILS # (AUTO) 3.3 X10'3 (1.8-7.7); NEUTROPHILS % (AUTO) 50.6 % (42-75); PLATELET COUNT 81 X10'3 (140-440); RED BLOOD COUNT 3.24 X10'6 (4.20-5.60); RED CELL DISTRIBUTION WIDTH 32.7 % (11.5-14.5); WHITE BLOOD COUNT 6.6 X10'3 (4.5-11.0)
[2020-10-15 21:19] LABS: ALANINE AMINOTRANSFERASE 61 U/L (12-78); ALBUMIN 1.9 G/DL (3.4-5.0); ALKALINE PHOSPHATASE 264 IU/L (46-116); ANION GAP 2 (8-16); ASPARTATE AMINO TRANSFERASE 82 U/L (10-37); BILIRUBIN,TOTAL 7.6 MG/DL (0.1-1.0); BLOOD UREA NITROGEN 15 MG/DL (7-18); CALCIUM 7.9 MG/DL (8.5-10.1); CHLORIDE 101 MMOL/L (99-107); GLUCOSE 84 MG/DL (70-104); POTASSIUM 5.7 MMOL/L (3.5-5.1); SODIUM 134 MMOL/L (135-145); TOTAL CARBON DIOXIDE 30.9 MMOL/L (24-32); eGFR > 90 ML/MIN
[2020-10-15 21:23] LABS: ALBUMIN/GLOBULIN RATIO 0.5 (1.1-1.5); ETHANOL < 0.010 GM/DL (0.0-0.010); TOTAL PROTEIN 6.1 G/DL (6.4-8.2); TROPONIN I < 0.04 NG/ML (0.0-0.05)
--- NOTE | 2020-10-15 21:41 | NUR ---
PT REFUSING [id number]
[2020-10-15 21:45] LABS: ANISOCYTOSIS 3+; PLATELET ESTIMATE DECREASED; TOTAL CELLS COUNTED 100
[2020-10-15 21:46] LABS: ELLIPTOCYTES FEW; TARGET CELLS FEW
[2020-10-15 21:47] LABS: SCHISTOCYTES FEW; SPHEROCYTES FEW
--- NOTE | 2020-10-15 22:00 | NUR ---
Pt refusing straight cath for UA. Pt cursing and swinging, refusing to be cathed.
[2020-10-15] MEDS ORDERED: diphenhydrAMINE 50 mg/ml inj IV PRN (22:40)
[2020-10-15] MEDS ORDERED: acetaminophen 325mg tablet PO PRN ×2 (22:40)
[2020-10-15] MEDS ORDERED: ondansetron/PF 4mg/2ml inj IV PRN (22:40)
[2020-10-15] MEDS ORDERED: magnesium hydroxide 30ml (MOM) UD suspension PO PRN (22:40)
[2020-10-15] MEDS ORDERED: acetaminophen 650mg rectal suppository RC PRN (22:40)
[2020-10-15] MEDS ORDERED: bisacodyl 10mg suppository rectal RC PRN (22:40)
[2020-10-15] MEDS ORDERED: ondansetron 4mg rapidly disintigrating tab PO PRN (22:40)
[2020-10-15] MEDS ORDERED: morphine 2 MG/ML inj. syringe IV PRN ×2 (22:40)
[2020-10-15] MEDS ORDERED: diphenhydrAMINE 25mg capsule PO PRN (22:40)
[2020-10-15] MEDS ORDERED: LORazepam 2 mg/ml vial IV PRN (22:40)
[2020-10-15] MEDS ORDERED: mag hydrox/Alum hydrox/simeth 30ml oral suspension PO PRN (22:40)
[2020-10-15 23:21] LABS: CREATINE KINASE 196 U/L (26-192); LIPASE 267 U/L (73-393); MAGNESIUM 1.9 MG/DL (1.5-2.4)
[2020-10-15] MEDS ORDERED: TRAM50TA2 PO (23:22)
[2020-10-15] MEDS ORDERED: POTA20TA19 PO (23:22)
[2020-10-15] MEDS ORDERED: ALBU17AE26 (23:24)
[2020-10-15] MEDS ORDERED: BUDE10.27 IH (23:24)
[2020-10-15] MEDS ORDERED: NICO-631 TD (23:25)
[2020-10-15 23:26] LABS: PHOSPHORUS 3.5 MG/DL (2.3-4.5)
--- NOTE | 2020-10-16 00:52 | NUR ---
Dr. Dick called about pt BP being 80/40. Potentially positional, but pt screaming any time I attempt to reposition her. New order received for 500ml bolus. Will reassess after bolus is completed.
[2020-10-16] MEDS ORDERED: normal saline 500ml IV soln 500 ML IV ONE (00:55)
[2020-10-16] MEDS ORDERED: ALBU90AE IH (00:57)
[2020-10-16 01:57] LABS: EOSINOPHILS # (AUTO) 0.2 X10'3 (0-0.9); LYMPHOCYTES # (AUTO) 1.2 X10'3 (1.1-4.8); MONOCYTES # (AUTO) 1.1 X10'3 (0-0.9); MONOCYTES % (AUTO) 20.2 % (2-12); NEUTROPHILS # (AUTO) 2.8 X10'3 (1.8-7.7); RED BLOOD COUNT 3.21 X10'6 (4.20-5.60)
[2020-10-16 01:59] LABS: BASOPHILS % (AUTO) 0.8 % (0-1); EOSINOPHILS % (AUTO) 4.2 % (0-6); HEMATOCRIT 32.1 % (35.0-45.0); HEMOGLOBIN 10.7 g/dl (12.0-16.0); LYMPHOCYTES % (AUTO) 21.9 % (21-51); MEAN CORPUSCULAR HEMOGLOBIN 33.4 PG (27.0-31.0); MEAN CORPUSCULAR HGB CONC 33.4 g/dL (33.0-36.5); MEAN CORPUSCULAR VOLUME 99.9 FL (78-98); MEAN PLATELET VOLUME 11.5 FL (7.4-10.4); NEUTROPHILS % (AUTO) 52.9 % (42-75); PLATELET COUNT 65 X10'3 (140-440); RED CELL DISTRIBUTION WIDTH 31.7 % (11.5-14.5); WHITE BLOOD COUNT 5.3 X10'3 (4.5-11.0)
[2020-10-16 02:01] LABS: ALANINE AMINOTRANSFERASE 58 U/L (12-78); ALBUMIN 1.9 G/DL (3.4-5.0); ALKALINE PHOSPHATASE 265 IU/L (46-116); ANION GAP 3 (8-16); ASPARTATE AMINO TRANSFERASE 89 U/L (10-37); BILIRUBIN,TOTAL 7.7 MG/DL (0.1-1.0); BLOOD UREA NITROGEN 16 MG/DL (7-18); BUN/CREATININE RATIO 35.6 (6.6-38.0); CALCIUM 7.4 MG/DL (8.5-10.1); CHLORIDE 103 MMOL/L (99-107); CREATININE 0.45 MG/DL (0.40-0.90); GLUCOSE 127 MG/DL (70-104); SODIUM 134 MMOL/L (135-145); TOTAL CARBON DIOXIDE 27.9 MMOL/L (24-32); eGFR > 90 ML/MIN
[2020-10-16 02:16] LABS: ALBUMIN/GLOBULIN RATIO 0.5 (1.1-1.5); POTASSIUM 5.3 MMOL/L (3.5-5.1); TOTAL PROTEIN 6.1 G/DL (6.4-8.2)
[2020-10-16] MEDS: lactulose 20gm/30ml cup PO SCH ×3 (03:39→18:25)
--- NOTE | 2020-10-16 03:54 | NUR ---
Pt asleep. Pt lying on right side. Pt was able to take lactulose, but it took alot of coaxing and redirection. Pt yelling and argumentative about taking it.
[2020-10-16 04:04] LABS: TOTAL CELLS COUNTED 100
[2020-10-16 04:05] LABS: ANISOCYTOSIS 3+; ELLIPTOCYTES FEW; PLATELET ESTIMATE DECREASED; SCHISTOCYTES FEW; TARGET CELLS FEW
--- NOTE | 2020-10-16 05:50 | NUR ---
Pt had large, soft BM. Pt provided bed bath. Linens changed. Straight cath performed and urine sent to lab
[2020-10-16 06:07] LABS: URINE HCG NEGATIVE (NEG)
[2020-10-16 06:14] LABS: CLARITY,URINE CLEAR (Clear); GLUCOSE, URINE NEGATIVE (Neg); KETONES,URINE NEGATIVE (Neg); LEUKOCYTE ESTERASE ,URINE SMALL (Neg); NITRITES, URINE POSITIVE (Neg); OCCULT BLOOD,URINE NEGATIVE (Neg); PROTEIN,URINE NEGATIVE (Neg); URINE AMPHETAMINE SCREEN NEGATIVE (Neg); URINE BARBITUATE SCREEN NEGATIVE (Neg); URINE BENZODIAZEPINES SCREEN NEGATIVE (Neg); URINE CANNABINOID SCREEN NEGATIVE (Neg); URINE COCAINE SCREEN NEGATIVE (Neg); URINE METHADONE SCREEN NEGATIVE (Neg); URINE OPIATE SCREEN NEGATIVE (Neg); URINE PHENCYCLIDINE SCREEN NEGATIVE (Neg); UROBILINOGEN,URINE 0.2 E.U/dL (0.2-1.0)
[2020-10-16 06:20] LABS: UA COLLECTION TYPE STRAIGHT CATH
[2020-10-16 06:21] LABS: COLOR,URINE DARK YELLOW (Yellow)
[2020-10-16 06:23] LABS: BACTERIA,URINE 4+ /HPF (Neg); MUCUS STRANDS NONE SEEN /LPF (Neg); RBC,URINE NONE SEEN /HPF (0-2); SQUAMOUS EPITHELIAL CELL,UR FEW /LPF (FEW); WBC CLUMPS,URINE FEW /HPF (NEGATIVE)
[2020-10-16] MEDS: docusate sod 100mg capsule PO SCH ×3 (08:00→18:11)
[2020-10-16] MEDS ORDERED: rifaximin 550mg tablet PO SCH ×2 (08:00→20:00)
[2020-10-16] MEDS: furosemide 10 MG/1 ML 10ml inj IV SCH (09:14)
[2020-10-16] MEDS: heparin, porcine 5000 units/ml vial SQ SCH ×2 (09:15→20:00)
[2020-10-16 09:36] LABS: BASOPHILS % (AUTO) 0.6 % (0-1); EOSINOPHILS # (AUTO) 0.1 X10'3 (0-0.9); EOSINOPHILS % (AUTO) 3.3 % (0-6); HEMATOCRIT 35.2 % (35.0-45.0); HEMOGLOBIN 11.5 g/dl (12.0-16.0); LYMPHOCYTES % (AUTO) 22.3 % (21-51); MEAN CORPUSCULAR HGB CONC 32.7 g/dL (33.0-36.5); MONOCYTES # (AUTO) 0.8 X10'3 (0-0.9); MONOCYTES % (AUTO) 18.1 % (2-12); NEUTROPHILS # (AUTO) 2.5 X10'3 (1.8-7.7); NEUTROPHILS % (AUTO) 55.7 % (42-75); PLATELET COUNT 84 X10'3 (140-440); RED BLOOD COUNT 3.49 X10'6 (4.20-5.60); RED CELL DISTRIBUTION WIDTH 32.6 % (11.5-14.5); WHITE BLOOD COUNT 4.5 X10'3 (4.5-11.0)
--- NOTE | 2020-10-16 10:37 | NUR ---
PT HAS HAD ANOTHER BM AND WET DIAPER, CLEAN PT AND CHANGE BEDDING.PT NOT WAKING UP ENOUGH TO TAKE ORAL MEDICATION.
--- NOTE | 2020-10-16 11:06 | NUR ---
WAITING FOR DR BURRIS TO RESPOND TO PAGE.
--- NOTE | 2020-10-16 11:30 | NUR ---
DR BURRIS ORDERS THAT ALL PO MEDS CAN BE CHANGED TO IV. CALL PHARMACY AND WAS INFORMED THAT THE XIFAXAN CAN ONLY BE GIVEN PO. PHARMACIST SUGGESTS AN NG TUBE. PAGE DR BURRIS AGAIN TO GET AN ORDER.
[2020-10-16] MEDS ORDERED: albuterol 2.5 MG/3 ML nebule NEB PRN (12:15)
--- NOTE | 2020-10-16 12:30 | NUR ---
DR BURRIS NOT CALLING BACK, NOTIFY CHARGE NURSE.
--- NOTE | 2020-10-16 13:37 | NUR ---
PT CONTINUES TO BE DROWSEY AND NOT WAKING ENOUGH TO TAKE ORAL INTAKE. NO CALL BACK FROM DR BURRIS.
--- NOTE | 2020-10-16 14:23 | NUR ---
DR BURRIS ARRIVES IN THE ER, ORDERS TO CANCELL THE XIFAXAN PO AND TO GIVE THE LACTULOSE PER RECTAL.
[2020-10-16] MEDS ORDERED: Lactulose Enema **for rectal use only RC SCH ×2 (15:00)
[2020-10-16] MEDS: albuterol 2.5 MG/3 ML nebule NEB SCH ×2 (15:00→21:02)
--- NOTE | 2020-10-16 16:43 | NUR ---
DR SIDDIQUI ARRIVES IN ER, REQUEST THAT SHE ORDER THE LACTULOSE ENEMA. SHE IS NOT SURE HOW TO ORDER IT. PHARMACY IS CALLED AND DR SIDDIQUI GIVES THE PHARMACIST VERBAL ORDERS SO HE CAN PUT THE ORDER IN MEDITEC.
[2020-10-16] MEDS ORDERED: lactulose 20gm/30ml cup PO SCH (18:21)
[2020-10-16] MEDS: propranolol 10mg tablet PO SCH (20:00)
[2020-10-16] MEDS ORDERED: non-formulary drug (Budesonide/Formoterol Fumarate (Budesonide-Formoterol 80-4.5) 2 PUFFS) IH SCH (20:00)
[2020-10-16 20:10] VITALS: BP 102/60
--- NOTE | 2020-10-16 20:15 | NUR ---
Received report from [place] and patient was transferred to unit on bed, with belongings, including cell phone.
[2020-10-16] MEDS: budesonide 0.5mg/2ml UD nebule IH SCH (21:03)
[2020-10-16] MEDS: nicotine 14mg patch - 24hr TD SCH (21:08)
[2020-10-16] MEDS: rifaximin 550mg tablet PO SCH (21:46)
[2020-10-16] MEDS ORDERED: CefTRIAXone/D5W-Rocephin 1gm 50 ML IV SCH (22:00)
[2020-10-17] VITALS: BP 139/86
[2020-10-17] MEDS: albuterol 2.5 MG/3 ML nebule NEB SCH ×4 (02:43→20:33)
[2020-10-17] MEDS: lactulose 20gm/30ml cup PO SCH ×4 (02:54→19:37)
[2020-10-17 06:29] LABS: ALANINE AMINOTRANSFERASE 68 U/L (12-78); ALBUMIN 2.1 G/DL (3.4-5.0); ALKALINE PHOSPHATASE 242 IU/L (46-116); ANION GAP 5 (8-16); ASPARTATE AMINO TRANSFERASE 101 U/L (10-37); BILIRUBIN,TOTAL 10.5 MG/DL (0.1-1.0); BLOOD UREA NITROGEN 13 MG/DL (7-18); CALCIUM 8.1 MG/DL (8.5-10.1); CHLORIDE 101 MMOL/L (99-107); GLUCOSE 64 MG/DL (70-104); SODIUM 136 MMOL/L (135-145); TOTAL CARBON DIOXIDE 29.9 MMOL/L (24-32); eGFR > 90 ML/MIN
[2020-10-17] MEDS: propranolol 10mg tablet PO SCH ×2 (06:30→19:35)
--- NOTE | 2020-10-17 06:30 | NUR ---
Problems reprioritized. Patient report given, questions answered & plan of care reviewed with HILARY Shaikh.
[2020-10-17 06:34] LABS: ALBUMIN/GLOBULIN RATIO 0.5 (1.1-1.5); TOTAL PROTEIN 6.5 G/DL (6.4-8.2)
[2020-10-17 06:45] VITALS: BP 110/54
[2020-10-17 07:24] LABS: BASOPHILS % (AUTO) 0.7 % (0-1); EOSINOPHILS # (AUTO) 0.2 X10'3 (0-0.9); EOSINOPHILS % (AUTO) 3.8 % (0-6); LYMPHOCYTES # (AUTO) 1.2 X10'3 (1.1-4.8); LYMPHOCYTES % (AUTO) 22.9 % (21-51); MEAN CORPUSCULAR HEMOGLOBIN 33.6 PG (27.0-31.0); MEAN CORPUSCULAR HGB CONC 33.8 g/dL (33.0-36.5); MEAN CORPUSCULAR VOLUME 99.4 FL (78-98); MEAN PLATELET VOLUME 10.6 FL (7.4-10.4); MONOCYTES # (AUTO) 1.1 X10'3 (0-0.9); MONOCYTES % (AUTO) 20.8 % (2-12); NEUTROPHILS # (AUTO) 2.7 X10'3 (1.8-7.7); NEUTROPHILS % (AUTO) 51.8 % (42-75); RED CELL DISTRIBUTION WIDTH 32.1 % (11.5-14.5); WHITE BLOOD COUNT 5.1 X10'3 (4.5-11.0)
[2020-10-17 07:45] LABS: HEMOGLOBIN 11.6 g/dl (12.0-16.0); PLATELET COUNT 73 X10'3 (140-440); RED BLOOD COUNT 3.43 X10'6 (4.20-5.60)
[2020-10-17] MEDS: docusate sod 100mg capsule PO SCH ×2 (08:00→19:29)
[2020-10-17] MEDS: heparin, porcine 5000 units/ml vial SQ SCH ×2 (08:00→19:29)
[2020-10-17] MEDS: budesonide 0.5mg/2ml UD nebule IH SCH ×2 (08:16→20:33)
[2020-10-17] MEDS: furosemide 10 MG/1 ML 10ml inj IV SCH (08:33)
[2020-10-17] MEDS: normal saline 1000ml 1,000 ML IV SCH (08:33)
[2020-10-17] MEDS: nicotine 14mg patch - 24hr TD SCH (08:35)
[2020-10-17] MEDS: rifaximin 550mg tablet PO SCH ×2 (08:35→19:35)
[2020-10-17 11:00] VITALS: BP 124/70
[2020-10-17] MEDS: ciprofloxacin 250mg tablet PO SCH ×2 (12:01→19:35)
[2020-10-17 13:31] LABS: ANISOCYTOSIS 3+; PLATELET ESTIMATE DECREASED; TOTAL CELLS COUNTED 100
[2020-10-17 13:32] LABS: BURR CELLS FEW; ELLIPTOCYTES FEW
[2020-10-17 13:33] LABS: HYPOCHROMASIA 1+; TARGET CELLS FEW
[2020-10-17 13:34] LABS: SCHISTOCYTES FEW
[2020-10-17 18:00] VITALS: BP 138/55
--- NOTE | 2020-10-17 18:30 | NUR ---
Patient in room KANDY 356. I have received report from Hawa RICHARD and had the opportunity to ask questions and assume patient care.
--- NOTE | 2020-10-17 18:44 | NUR ---
Problems reprioritized. Patient report given, questions answered & plan of care reviewed with Shefali RICHARD.
[2020-10-17 23:32] VITALS: BP 101/52
[2020-10-18] MEDS: lactulose 20gm/30ml cup PO SCH ×4 (01:17→20:05)
[2020-10-18] MEDS: HYDROcodone/acetaminophen 5mg/325mg tablet PO PRN (01:52)
[2020-10-18] MEDS: albuterol 2.5 MG/3 ML nebule NEB SCH ×4 (02:11→20:11)
[2020-10-18] MEDS: normal saline 1000ml 1,000 ML IV SCH (04:02)
--- NOTE | 2020-10-18 06:27 | NUR ---
Problems reprioritized. Patient report given, questions answered & plan of care reviewed with Peyton RICHARD.
[2020-10-18] MEDS: heparin, porcine 5000 units/ml vial SQ SCH (06:35)
[2020-10-18 07:19] VITALS: BP 133/66
[2020-10-18] MEDS: propranolol 10mg tablet PO SCH ×2 (07:34→20:00)
[2020-10-18] MEDS: budesonide 0.5mg/2ml UD nebule IH SCH ×2 (08:09→20:11)
[2020-10-18] MEDS: docusate sod 100mg capsule PO SCH ×2 (08:32→20:05)
[2020-10-18 08:33] LABS: HEMATOCRIT 36.4 % (35.0-45.0); HEMOGLOBIN 12.3 g/dl (12.0-16.0); MONOCYTES # (AUTO) 0.8 X10'3 (0-0.9); NEUTROPHILS # (AUTO) 2.5 X10'3 (1.8-7.7)
[2020-10-18] MEDS: ciprofloxacin 250mg tablet PO SCH ×2 (08:33→20:05)
[2020-10-18] MEDS: rifaximin 550mg tablet PO SCH ×2 (08:33→20:05)
[2020-10-18 08:35] LABS: BASOPHILS % (AUTO) 0.7 % (0-1); EOSINOPHILS # (AUTO) 0.1 X10'3 (0-0.9); EOSINOPHILS % (AUTO) 2.7 % (0-6); LYMPHOCYTES % (AUTO) 23.4 % (21-51); MEAN CORPUSCULAR HEMOGLOBIN 33.5 PG (27.0-31.0); MEAN CORPUSCULAR HGB CONC 33.8 g/dL (33.0-36.5); MEAN CORPUSCULAR VOLUME 99.1 FL (78-98); MEAN PLATELET VOLUME 10.7 FL (7.4-10.4); MONOCYTES % (AUTO) 17.5 % (2-12); NEUTROPHILS % (AUTO) 55.7 % (42-75); RED BLOOD COUNT 3.67 X10'6 (4.20-5.60)
[2020-10-18] MEDS: furosemide 10 MG/1 ML 10ml inj IV SCH (08:37)
[2020-10-18] MEDS: nicotine 14mg patch - 24hr TD SCH (08:41)
[2020-10-18 08:49] LABS: WHITE BLOOD COUNT 4.4 X10'3 (4.5-11.0)
[2020-10-18 08:50] LABS: PLATELET COUNT 85 X10'3 (140-440)
[2020-10-18 08:56] LABS: ALANINE AMINOTRANSFERASE 74 U/L (12-78); ALKALINE PHOSPHATASE 229 IU/L (46-116); ANION GAP 5 (8-16); ASPARTATE AMINO TRANSFERASE 102 U/L (10-37); BILIRUBIN,TOTAL 12.4 MG/DL (0.1-1.0); BLOOD UREA NITROGEN 9 MG/DL (7-18); BUN/CREATININE RATIO 22.5 (6.6-38.0); CALCIUM 7.6 MG/DL (8.5-10.1); CHLORIDE 102 MMOL/L (99-107); GLUCOSE 91 MG/DL (70-104); SODIUM 136 MMOL/L (135-145); TOTAL CARBON DIOXIDE 29.2 MMOL/L (24-32); eGFR > 90 ML/MIN
[2020-10-18 09:00] LABS: ALBUMIN/GLOBULIN RATIO 0.5 (1.1-1.5); TOTAL PROTEIN 6.4 G/DL (6.4-8.2)
[2020-10-18 09:11] LABS: ANISOCYTOSIS 3+; PLATELET ESTIMATE DECREASED; TARGET CELLS FEW
[2020-10-18 09:12] LABS: POLYCHROMASIA FEW
[2020-10-18] MEDS ORDERED: iohexol 350MG/ML 100ml bottle IV ONE (10:57)
[2020-10-18 11:25] VITALS: BP 119/51
[2020-10-18] MEDS: furosemide 40mg/4ml inj IV SCH (12:45)
--- NOTE | 2020-10-18 18:56 | NUR ---
report given to Merna Bauman Rn. all questions answered. pt awake in bed eating. answering mostly appropriatly, with intermittent confusion
--- NOTE | 2020-10-18 19:02 | NUR ---
Patient was sleeping but woke easily for skin check. Pt states she is painful, Merna Bauman will get patient pain med. Dr Washington allowed patient to have clear liquid diet while waiting for urology to consult. Addendum: 10/18/20 at 1904 by Peyton Alexander RN, RN wrong patient
--- NOTE | 2020-10-18 19:03 | NUR ---
Patient in room KANDY 356. I have received report from ROULA RICHARD and had the opportunity to ask questions and assume patient care.
[2020-10-18 20:00] VITALS: BP 155/66
[2020-10-18] MEDS ORDERED: diatr meglu/diatrizoate 30ml oral sol.-(3 dose) bottle PO SCH (21:00)
[2020-10-19] VITALS: BP 140/63
[2020-10-19] MEDS: albuterol 2.5 MG/3 ML nebule NEB SCH ×4 (02:46→19:33)
[2020-10-19] MEDS: lactulose 20gm/30ml cup PO SCH ×4 (03:51→20:27)
--- NOTE | 2020-10-19 06:20 | NUR ---
Patient in room KANDY 356. I have received report from Merna Bauman RN and had the opportunity to ask questions and assume patient care.
[2020-10-19 06:30] VITALS: BP 130/56
--- NOTE | 2020-10-19 06:55 | NUR ---
Problems reprioritized. Patient report given, questions answered & plan of care reviewed with JULIAN RN.
[2020-10-19] MEDS: budesonide 0.5mg/2ml UD nebule IH SCH ×2 (07:33→19:33)
[2020-10-19] MEDS: propranolol 10mg tablet PO SCH ×2 (08:00→20:27)
[2020-10-19] MEDS: furosemide 40mg/4ml inj IV SCH (08:53)
[2020-10-19] MEDS: nicotine 14mg patch - 24hr TD SCH (08:53)
[2020-10-19] MEDS: docusate sod 100mg capsule PO SCH ×2 (08:53→20:27)
[2020-10-19] MEDS: ciprofloxacin 250mg tablet PO SCH ×2 (08:53→20:27)
[2020-10-19] MEDS: rifaximin 550mg tablet PO SCH ×2 (08:54→23:31)
[2020-10-19 09:26] LABS: BASOPHILS % (AUTO) 0.8 % (0-1); EOSINOPHILS # (AUTO) 0.1 X10'3 (0-0.9); EOSINOPHILS % (AUTO) 1.6 % (0-6); HEMATOCRIT 34.3 % (35.0-45.0); HEMOGLOBIN 11.5 g/dl (12.0-16.0); LYMPHOCYTES % (AUTO) 17.6 % (21-51); MEAN CORPUSCULAR HGB CONC 33.5 g/dL (33.0-36.5); MEAN CORPUSCULAR VOLUME 98.8 FL (78-98); MONOCYTES # (AUTO) 1.1 X10'3 (0-0.9); MONOCYTES % (AUTO) 18.6 % (2-12); NEUTROPHILS # (AUTO) 3.5 X10'3 (1.8-7.7); NEUTROPHILS % (AUTO) 61.4 % (42-75); PLATELET COUNT 114 X10'3 (140-440); RED BLOOD COUNT 3.47 X10'6 (4.20-5.60); RED CELL DISTRIBUTION WIDTH 30.6 % (11.5-14.5); WHITE BLOOD COUNT 5.7 X10'3 (4.5-11.0)
[2020-10-19 09:32] LABS: ALANINE AMINOTRANSFERASE 71 U/L (12-78); ALBUMIN 1.8 G/DL (3.4-5.0); ALBUMIN/GLOBULIN RATIO 0.4 (1.1-1.5); ALKALINE PHOSPHATASE 221 IU/L (46-116); ANION GAP 6 (8-16); ASPARTATE AMINO TRANSFERASE 90 U/L (10-37); BILIRUBIN,TOTAL 13.7 MG/DL (0.1-1.0); BLOOD UREA NITROGEN 8 MG/DL (7-18); BUN/CREATININE RATIO 14.8 (6.6-38.0); CALCIUM 7.6 MG/DL (8.5-10.1); CHLORIDE 99 MMOL/L (99-107); CREATININE 0.54 MG/DL (0.40-0.90); GLUCOSE 179 MG/DL (70-104); POTASSIUM 3.9 MMOL/L (3.5-5.1); SODIUM 133 MMOL/L (135-145); TOTAL CARBON DIOXIDE 28.1 MMOL/L (24-32); eGFR > 90 ML/MIN
[2020-10-19 10:42] LABS: TOTAL CELLS COUNTED 100
[2020-10-19 10:44] LABS: ANISOCYTOSIS 3+; BURR CELLS FEW; ELLIPTOCYTES FEW; PLATELET ESTIMATE DECREASED; SCHISTOCYTES FEW; TARGET CELLS FEW; TEAR DROP CELLS 1+
[2020-10-19 11:00] VITALS: BP 132/68
--- NOTE | 2020-10-19 18:05 | NUR ---
Patient in room KANDY 349. I have received report from JULIAN RICHARD and had the opportunity to ask questions and assume patient care. Addendum: 10/20/20 at 0135 by Patricia Gann RN Amended: Links added.
--- NOTE | 2020-10-19 18:10 | NUR ---
Problems reprioritized. Patient report given, questions answered & plan of care reviewed with HILARY Gomez.
--- NOTE | 2020-10-19 18:25 | NUR ---
daughter Taryn called to check on pt concerned as her mother had not called or talked to her all day and had called all day off and on yesterday. asked pt if she wanted to call and talk to her daughter and she gave a blank stare and did not answer me. asked if she wanted me to charge her phone again no answer.
--- NOTE | 2020-10-19 19:50 | NUR ---
daughter Wendi called to check on MOm.
[2020-10-19] MEDS: lactobacillus rhamnosus 10,000 MMU CELLS/CAPSULE PO SCH (20:27)
--- NOTE | 2020-10-19 20:40 | NUR ---
returned call to daughter Wendi and answered her questions. let her know pt not talking tonight.
[2020-10-19] MEDS: temazepam 15mg capsule PO PRN (23:31)
[2020-10-19] MEDS: HYDROcodone/acetaminophen 5mg/325mg tablet PO PRN (23:31)
--- NOTE | 2020-10-19 23:38 | NUR ---
sats 86-88% put on 1 l nc and vitals taken. c/o pain and ubable to sleep norco and restoril given for this with a warm blanket.
[2020-10-19 23:41] VITALS: BP 125/80
--- NOTE | 2020-10-19 23:44 | NUR ---
pt's eyes jaundiced and answering questions with head nods.
--- NOTE | 2020-10-20 02:25 | NUR ---
attempt to give lactulose pt in the bathroom. said she is ok.
--- NOTE | 2020-10-20 02:45 | NUR ---
pt remains int he bathroom rechecked she said she was ok. rt here said she would go to er and come back to the pt.
--- NOTE | 2020-10-20 02:50 | NUR ---
DR HERCULES NOTIFIED PT NEEDING 02 had sats while sitting up 86-88%. order received.
--- NOTE | 2020-10-20 03:15 | NUR ---
pt out of bathroom had been inc of stool. she cleaned herself up and hospital pj bottoms given to her. rt tx done she took her lactulose with encouragement. then after resp tx done pt assisted back into bed and socks applied.
[2020-10-20] MEDS: albuterol 2.5 MG/3 ML nebule NEB SCH ×4 (03:18→20:14)
[2020-10-20] MEDS: lactulose 20gm/30ml cup PO SCH ×4 (03:28→20:02)
--- NOTE | 2020-10-20 06:08 | NUR ---
Problems reprioritized. Patient report given, questions answered & plan of care reviewed with DEJAN RICHARD. Addendum: 10/20/20 at 0608 by Patricia Gann RN Amended: Links added.
--- NOTE | 2020-10-20 06:40 | NUR ---
Patient in room KANDY 349. I have received report from Patricia RICHARD and had the opportunity to ask questions and assume patient care.
[2020-10-20] MEDS: budesonide 0.5mg/2ml UD nebule IH SCH ×2 (07:37→20:14)
[2020-10-20 08:06] VITALS: BP 110/62
[2020-10-20] MEDS: docusate sod 100mg capsule PO SCH ×2 (08:44→20:01)
[2020-10-20] MEDS: lactobacillus rhamnosus 10,000 MMU CELLS/CAPSULE PO SCH ×2 (08:44→20:01)
[2020-10-20] MEDS: propranolol 10mg tablet PO SCH ×2 (08:44→20:01)
[2020-10-20] MEDS: ciprofloxacin 250mg tablet PO SCH (08:46)
[2020-10-20] MEDS: nicotine 14mg patch - 24hr TD SCH (08:46)
[2020-10-20] MEDS: furosemide 40mg/4ml inj IV SCH (08:47)
[2020-10-20] MEDS: HYDROcodone/acetaminophen 5mg/325mg tablet PO PRN ×2 (10:29→20:01)
[2020-10-20] MEDS: rifaximin 550mg tablet PO SCH ×2 (10:52→20:12)
[2020-10-20 11:00] VITALS: BP 118/67
--- NOTE | 2020-10-20 11:24 | NUR ---
Initial: Pt admit DX hepatic encephalopathy, cirrhosis w/ worsening bilirubin, CAD, UTI, COPD exacerbation, and pancytopenia r/t cirrhosis per EMR. Ammonia 58 /16 receiving Q6H lactulose as well as colace having multiple BM's daily per EMR. S/p CT showing cirrhosis, portal HTN, and gallbladder distention w/ no biliary obstruction per EMR. Pt PO 100% most clear liquid diet past 4 days. Noted pt now day 5 on clear liquids since admit; per RN today pt NPO pending MRCP. RD d/w RN regarding diet advancement to heart healthy if MD agreeable as medically indicated s/p MRCP. MCV 98.8 down from 101 on admit and Na 133 receiving routine lasix w/ +2L fluid balance this admit per EMR. Also noted pt prior ht hx 57-60in and current wt 94.9kg likely supposed to be pounds given prior wt 48kg October 07 admit this year; true BMI 20.5 using 57in ht. Will monitor for PO diet advancement and ONS needs this admit; not meeting needs at this time given prolonged restrictive diet. Rec: 1. advance diet as medically indicated to heart healthy; day 5 clear liquid 2. monitor for ONS needs; ensure clear IF to remain on clears liquids 3. routine bowel care; colace and lactulose Q6H for ammonia per MD 4. updated ht/wt this admit; true BMI likely ~20.5 Addendum: 10/20/20 at [address] Amended: Links added.
[2020-10-20 11:48] LABS: EOSINOPHILS # (AUTO) 0.1 X10'3 (0-0.9); HEMOGLOBIN 12.3 g/dl (12.0-16.0); PLATELET COUNT 131 X10'3 (140-440)
[2020-10-20 11:50] LABS: BASOPHILS % (AUTO) 0.6 % (0-1); EOSINOPHILS % (AUTO) 1.5 % (0-6); HEMATOCRIT 36.2 % (35.0-45.0); LYMPHOCYTES # (AUTO) 1.6 X10'3 (1.1-4.8); LYMPHOCYTES % (AUTO) 33.1 % (21-51); MEAN CORPUSCULAR HEMOGLOBIN 33.1 PG (27.0-31.0); MEAN CORPUSCULAR VOLUME 97.4 FL (78-98); MEAN PLATELET VOLUME 9.1 FL (7.4-10.4); MONOCYTES # (AUTO) 0.9 X10'3 (0-0.9); MONOCYTES % (AUTO) 18.8 % (2-12); NEUTROPHILS # (AUTO) 2.2 X10'3 (1.8-7.7); RED BLOOD COUNT 3.72 X10'6 (4.20-5.60); RED CELL DISTRIBUTION WIDTH 30.1 % (11.5-14.5); WHITE BLOOD COUNT 4.8 X10'3 (4.5-11.0)
[2020-10-20 12:04] LABS: ALANINE AMINOTRANSFERASE 73 U/L (12-78); ALBUMIN/GLOBULIN RATIO 0.4 (1.1-1.5); ALKALINE PHOSPHATASE 248 IU/L (46-116); ANION GAP 7 (8-16); ASPARTATE AMINO TRANSFERASE 90 U/L (10-37); BILIRUBIN,TOTAL 18.6 MG/DL (0.1-1.0); BLOOD UREA NITROGEN 14 MG/DL (7-18); BUN/CREATININE RATIO 20.9 (6.6-38.0); CALCIUM 7.9 MG/DL (8.5-10.1); CHLORIDE 96 MMOL/L (99-107); CREATININE 0.67 MG/DL (0.40-0.90); GLUCOSE 168 MG/DL (70-104); SODIUM 132 MMOL/L (135-145); TOTAL CARBON DIOXIDE 29.3 MMOL/L (24-32); TOTAL PROTEIN 6.7 G/DL (6.4-8.2); eGFR 90 ML/MIN
[2020-10-20 12:05] LABS: LARGE PLATELETS FEW; PLATELET ESTIMATE DECREASED
[2020-10-20 12:06] LABS: ANISOCYTOSIS 3+; BURR CELLS 1+; POTASSIUM 2.8 MMOL/L (3.5-5.1); ROULEAUX 1+; SCHISTOCYTES FEW; TARGET CELLS FEW
[2020-10-20] MEDS ORDERED: magnesium 4gm in 100ml NS 100 ML IV PRN (12:10)
[2020-10-20] MEDS ORDERED: potassium Cl 40MEQ/1/2NS 520ml 520 ML IV PRN (12:10)
[2020-10-20] MEDS ORDERED: potassium Cl 20 mEq SR tablet PO PRN (12:10)
[2020-10-20 12:19] LABS: MAGNESIUM 1.3 MG/DL (1.5-2.4)
[2020-10-20] MEDS: magnesium Cl slow-release 64mg tablet PO PRN ×2 (17:55→20:12)
[2020-10-20] MEDS: potassium Cl 20 mEq SR tablet PO PRN ×2 (17:56→20:01)
[2020-10-20 18:00] VITALS: BP 100/65
[2020-10-20] MEDS: lactose-reduced food (Ensure Enlive) - 237ml bottle PO SCH (18:00)
--- NOTE | 2020-10-20 18:49 | NUR ---
Problems reprioritized. Patient report given, questions answered & plan of care reviewed with FESTUS IRCHARD.
--- NOTE | 2020-10-20 18:55 | NUR ---
Patient in room KANDY 349. I have received report from DEJAN RICHARD and had the opportunity to ask questions and assume patient care. Addendum: 10/20/20 at 1856 by Patricia Gann RN Amended: Links added.
[2020-10-20] MEDS: temazepam 15mg capsule PO PRN (20:01)
[2020-10-20] MEDS: K and/or MAG REPLACEMENT MC SCH (20:06)
[2020-10-21] VITALS: BP 86/38
--- NOTE | 2020-10-21 00:25 | NUR ---
up ambulating in the halls tolerated well.
--- NOTE | 2020-10-21 01:35 | NUR ---
pt awake and requested a second sleeper took her lactulose and her potassium doses.
--- NOTE | 2020-10-21 01:45 | NUR ---
pt made npo aware we are waiting for mrcp results to decide her next plan of care and explained to her. pt understood it.
[2020-10-21] MEDS: lactulose 20gm/30ml cup PO SCH ×4 (01:46→20:14)
[2020-10-21] MEDS: temazepam 15mg capsule PO PRN (01:46)
[2020-10-21] MEDS: potassium Cl 20 mEq SR tablet PO PRN (01:51)
[2020-10-21] MEDS: albuterol 2.5 MG/3 ML nebule NEB SCH ×4 (02:27→20:20)
--- NOTE | 2020-10-21 04:18 | NUR ---
resting appears comfortable on right side.
--- NOTE | 2020-10-21 06:06 | NUR ---
Problems reprioritized. Patient report given, questions answered & plan of care reviewed with DEJAN RICHARD. Addendum: 10/21/20 at 0606 by Patricia Gann RN Amended: Links added.
--- NOTE | 2020-10-21 06:53 | NUR ---
Patient in room KANDY 349. I have received report from FESTUS RICHARD and had the opportunity to ask questions and assume patient care.
[2020-10-21] MEDS: budesonide 0.5mg/2ml UD nebule IH SCH ×2 (07:29→20:20)
[2020-10-21 07:57] VITALS: BP 92/43
[2020-10-21] MEDS: lactose-reduced food (Ensure Enlive) - 237ml bottle PO SCH ×3 (08:00→19:00)
[2020-10-21] MEDS: K and/or MAG REPLACEMENT MC SCH ×2 (08:00→20:00)
[2020-10-21] MEDS: propranolol 10mg tablet PO SCH ×2 (08:00→20:15)
[2020-10-21] MEDS: docusate sod 100mg capsule PO SCH ×2 (08:07→20:15)
[2020-10-21] MEDS: rifaximin 550mg tablet PO SCH ×2 (08:08→20:15)
[2020-10-21] MEDS: lactobacillus rhamnosus 10,000 MMU CELLS/CAPSULE PO SCH ×2 (08:08→20:15)
[2020-10-21] MEDS: furosemide 40mg/4ml inj IV SCH (08:08)
[2020-10-21] MEDS: nicotine 14mg patch - 24hr TD SCH (08:09)
[2020-10-21 08:51] LABS: ALANINE AMINOTRANSFERASE 65 U/L (12-78); ALBUMIN 1.9 G/DL (3.4-5.0); ALBUMIN/GLOBULIN RATIO 0.4 (1.1-1.5); ALKALINE PHOSPHATASE 238 IU/L (46-116); ANION GAP 3 (8-16); ASPARTATE AMINO TRANSFERASE 85 U/L (10-37); BILIRUBIN,TOTAL 17.1 MG/DL (0.1-1.0); BLOOD UREA NITROGEN 24 MG/DL (7-18); BUN/CREATININE RATIO 35.8 (6.6-38.0); CALCIUM 7.9 MG/DL (8.5-10.1); CHLORIDE 98 MMOL/L (99-107); CREATININE 0.67 MG/DL (0.40-0.90); GLUCOSE 89 MG/DL (70-104); SODIUM 131 MMOL/L (135-145); TOTAL CARBON DIOXIDE 30.1 MMOL/L (24-32); TOTAL PROTEIN 6.3 G/DL (6.4-8.2); eGFR 90 ML/MIN
[2020-10-21 09:03] LABS: POTASSIUM 6.4 MMOL/L (3.5-5.1)
[2020-10-21 09:12] LABS: BASOPHILS # (AUTO) 0.1 X10'3 (0-0.2); BASOPHILS % (AUTO) 0.8 % (0-1); EOSINOPHILS # (AUTO) 0.1 X10'3 (0-0.9); EOSINOPHILS % (AUTO) 1.1 % (0-6); HEMATOCRIT 32.6 % (35.0-45.0); HEMOGLOBIN 11.2 g/dl (12.0-16.0); LYMPHOCYTES # (AUTO) 1.3 X10'3 (1.1-4.8); LYMPHOCYTES % (AUTO) 18.2 % (21-51); MEAN CORPUSCULAR HEMOGLOBIN 33.6 PG (27.0-31.0); MEAN CORPUSCULAR HGB CONC 34.2 g/dL (33.0-36.5); MEAN CORPUSCULAR VOLUME 98.1 FL (78-98); MEAN PLATELET VOLUME 10.5 FL (7.4-10.4); MONOCYTES # (AUTO) 2.1 X10'3 (0-0.9); MONOCYTES % (AUTO) 28.6 % (2-12); NEUTROPHILS # (AUTO) 3.8 X10'3 (1.8-7.7); NEUTROPHILS % (AUTO) 51.3 % (42-75); PLATELET COUNT 142 X10'3 (140-440); RED BLOOD COUNT 3.33 X10'6 (4.20-5.60); RED CELL DISTRIBUTION WIDTH 29.6 % (11.5-14.5); WHITE BLOOD COUNT 7.4 X10'3 (4.5-11.0)
[2020-10-21 10:08] LABS: PLATELET ESTIMATE NORMAL
[2020-10-21 10:09] LABS: ANISOCYTOSIS 3+
[2020-10-21 10:10] LABS: HYPOCHROMASIA 1+; TARGET CELLS FEW
[2020-10-21 10:11] LABS: BURR CELLS 1+; SCHISTOCYTES FEW
[2020-10-21 11:21] VITALS: BP 104/59
--- NOTE | 2020-10-21 13:35 | NUR ---
PAGER ID: [phone] MESSAGE: DEJAN SURG [phone] RE: [id number] Miranda PENA PATIENTS MRCP WAS THERE ANY OTHER PROCEDURES SCHEDULED SHE HAS BEEN NPO THIS MORNING JUST IN CASE. THANKS DEJAN
[2020-10-21 15:12] LABS: MAGNESIUM 1.5 MG/DL (1.5-2.4)
[2020-10-21 15:13] LABS: POTASSIUM 4.4 MMOL/L (3.5-5.1)
[2020-10-21] MEDS ORDERED: pantoprazole 40 MG vial IV ONE (16:20)
[2020-10-21] MEDS: phytonadione inj. 10 MG in normal saline 100ml IV soln 100 ML IV SCH (17:45)
[2020-10-21] MEDS: Ursodiol 300mg capsule PO SCH ×2 (17:45→20:15)
--- NOTE | 2020-10-21 18:56 | NUR ---
Problems reprioritized. Patient report given, questions answered & plan of care reviewed with POOJA RICHARD.
--- NOTE | 2020-10-21 18:57 | NUR ---
Patient in room KANDY 349. I have received report from DEJAN RICHARD and had the opportunity to ask questions and assume patient care.
[2020-10-21 19:00] VITALS: BP 96/38
[2020-10-22 01:00] VITALS: BP 108/39
[2020-10-22] MEDS: albuterol 2.5 MG/3 ML nebule NEB SCH ×3 (02:57→14:51)
[2020-10-22] MEDS: lactulose 20gm/30ml cup PO SCH ×3 (03:17→15:10)
[2020-10-22 06:02] LABS: BASOPHILS # (AUTO) 0.1 X10'3 (0-0.2); BASOPHILS % (AUTO) 0.7 % (0-1); EOSINOPHILS # (AUTO) 0.1 X10'3 (0-0.9); EOSINOPHILS % (AUTO) 0.9 % (0-6); HEMATOCRIT 30.5 % (35.0-45.0); HEMOGLOBIN 10.5 g/dl (12.0-16.0); LYMPHOCYTES # (AUTO) 1.7 X10'3 (1.1-4.8); LYMPHOCYTES % (AUTO) 20.6 % (21-51); MEAN CORPUSCULAR HEMOGLOBIN 33.3 PG (27.0-31.0); MEAN CORPUSCULAR HGB CONC 34.3 g/dL (33.0-36.5); MEAN PLATELET VOLUME 9.7 FL (7.4-10.4); MONOCYTES # (AUTO) 2.2 X10'3 (0-0.9); MONOCYTES % (AUTO) 25.8 % (2-12); NEUTROPHILS # (AUTO) 4.4 X10'3 (1.8-7.7); PLATELET COUNT 130 X10'3 (140-440); RED BLOOD COUNT 3.14 X10'6 (4.20-5.60); RED CELL DISTRIBUTION WIDTH 29.5 % (11.5-14.5); WHITE BLOOD COUNT 8.5 X10'3 (4.5-11.0)
--- NOTE | 2020-10-22 06:23 | NUR ---
Patient in room KANDY 349. I have received report from HILARY Hidalgo and had the opportunity to ask questions and assume patient care.
[2020-10-22 06:26] LABS: ALANINE AMINOTRANSFERASE 58 U/L (12-78); ALBUMIN 1.8 G/DL (3.4-5.0); ALKALINE PHOSPHATASE 244 IU/L (46-116); ANION GAP 3 (8-16); BILIRUBIN,TOTAL 15.1 MG/DL (0.1-1.0); BLOOD UREA NITROGEN 20 MG/DL (7-18); CALCIUM 7.5 MG/DL (8.5-10.1); CHLORIDE 100 MMOL/L (99-107); MAGNESIUM 1.6 MG/DL (1.5-2.4); POTASSIUM 4.8 MMOL/L (3.5-5.1); SODIUM 130 MMOL/L (135-145); TOTAL CARBON DIOXIDE 27.2 MMOL/L (24-32)
[2020-10-22 06:35] LABS: ALBUMIN/GLOBULIN RATIO 0.5 (1.1-1.5); ASPARTATE AMINO TRANSFERASE 86 U/L (10-37); BUN/CREATININE RATIO 32.3 (6.6-38.0); CREATININE 0.62 MG/DL (0.40-0.90); GLUCOSE 113 MG/DL (70-104); TOTAL PROTEIN 5.8 G/DL (6.4-8.2); eGFR > 90 ML/MIN
[2020-10-22 06:37] VITALS: BP 102/45
[2020-10-22 06:52] LABS: ANISOCYTOSIS 3+; PLATELET ESTIMATE DECREASED; TOTAL CELLS COUNTED 100
[2020-10-22 06:53] LABS: BURR CELLS 1+; HYPOCHROMASIA 1+; SCHISTOCYTES FEW; TARGET CELLS FEW
[2020-10-22] MEDS: lactose-reduced food (Ensure Enlive) - 237ml bottle PO SCH ×2 (08:00→13:00)
[2020-10-22] MEDS: K and/or MAG REPLACEMENT MC SCH (08:00)
[2020-10-22] MEDS ORDERED: pantoprazole 40 MG vial IV SCH (08:00)
[2020-10-22 08:11] VITALS: BP 107/51
[2020-10-22] MEDS: lactobacillus rhamnosus 10,000 MMU CELLS/CAPSULE PO SCH (08:18)
[2020-10-22] MEDS: propranolol 10mg tablet PO SCH (08:18)
[2020-10-22] MEDS: rifaximin 550mg tablet PO SCH (08:18)
[2020-10-22] MEDS: docusate sod 100mg capsule PO SCH (08:18)
[2020-10-22] MEDS: nicotine 14mg patch - 24hr TD SCH (08:19)
[2020-10-22] MEDS: furosemide 40mg/4ml inj IV SCH (08:19)
[2020-10-22] MEDS: Ursodiol 300mg capsule PO SCH (08:19)
[2020-10-22] MEDS: HYDROcodone/acetaminophen 5mg/325mg tablet PO PRN (08:19)
[2020-10-22] MEDS: phytonadione inj. 10 MG in normal saline 100ml IV soln 100 ML IV SCH (08:32)
[2020-10-22] MEDS ORDERED: LACT1CAP26 PO (09:14)
[2020-10-22] MEDS ORDERED: URSO300C2 PO (09:14)
[2020-10-22] MEDS ORDERED: SPIR25TA5 PO (09:14)
[2020-10-22] MEDS ORDERED: PHYT100T PO (09:17)
--- NOTE | 2020-10-22 11:09 | NUR ---
Per Dr. Smith social media sr strategy manager and PT to see patient prior to being DC'd. PT and social media sr strategy manager paged and return call from Order Puller Kalani states she has seen patient and patient to be dc home with daughter and will be notified but Kalani would like to see patient and family again today. PT Naveen stated patient has been evaluated and is independent and can be discharged home safely.
--- NOTE | 2020-10-22 11:20 | NUR ---
Called aD Stratton (Daughter) but no answer and unable to leave message as voicemail box was full. Called to Taryn Sharma (Daughter) and was told that Archana is in [place] ready to warehouse order picker patient when she is dc and might be driving around and to try and call again.
[2020-10-22 11:28] VITALS: BP 105/70
--- NOTE | 2020-10-22 11:31 | NUR ---
Called again Archana able to reach her and instructed her to bring patient's portable home 02 for patient to transport home with.
--- NOTE | 2020-10-22 11:40 | NUR ---
Discussed with patient discharge teaching and new prescriptions. Patient appears to be not interested in learning and will need reinforced teaching with daughter as well but she is verbalizing understanding of teaching and saying "mm hmm, mm hmm." When asked if she had any questions or concerns patient stated no. Patient did not want to go through her belongings list and stated "it's all here. It's packed and ready to go." Patient is waiting for daughter Archana to arrive to transfer home.
--- NOTE | 2020-10-22 15:03 | NUR ---
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 Called at listed phone number again and no answer. Unable to leave voicemail. Voicemail box full. Will try again.
--- NOTE | 2020-10-22 16:22 | NUR ---
Archana called again to let her know patient did not want to get dressed to get ready until she is on her way. Archana stated she was running "some errands and shopping to get her things" but she is now on her way. Will let patient know.
--- NOTE | 2020-10-22 18:05 | NUR ---
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 States she brought her portable 02 tank but "there is no regulator" so there is no use. Spoke to [facility] [employer] Operator, Vicky who authorized to have patient borrow one of hospitals full o2 tank and to return back to facility at a later time. Spoke to Archana and she stated she would bring back o2 tank as soon as possible when she returns to [place] from [place]. Patient dc'd with all personal belongings with no complaints at this time. She was escorted out in wheelchair with o2 accompanied by JAG Hilton. Daughter in lobby waiting for patient to transport home.
== END 2020-10-22 18:19 | disposition home or self-care (01) | DRG 280 ==
LOC: ER 18:55 → ED HOLD 22:40 → MED 3N 10-16 18:30 → SUR 3N 10-16 20:06
PROVIDERS: ADMIT Family Medicine; ATTEND Internal Medicine
PROC: BW211ZZ Computerized Tomography (CT Scan) of Abdomen and Pelvis using Low Osmolar Contrast (ICD-10-PCS; principal; 2020-10-18)
DX: K70.40 Alcoholic hepatic failure without coma (principal); G93.41 Metabolic encephalopathy; D61.818 Other pancytopenia; J96.10 Chronic respiratory failure, unspecified whether with hypoxia or hypercapnia; I11.0 Hypertensive heart disease with heart failure; I50.9 Heart failure, unspecified; E87.1 Hypo-osmolality and hyponatremia; E87.5 Hyperkalemia; N39.0 Urinary tract infection, site not specified; I25.10 Atherosclerotic heart disease of native coronary artery without angina pectoris; Z20.822 Contact with and (suspected) exposure to COVID-19; K74.60 Unspecified cirrhosis of liver; J44.1 Chronic obstructive pulmonary disease with (acute) exacerbation; B18.2 Chronic viral hepatitis C; I25.2 Old myocardial infarction; Z87.891 Personal history of nicotine dependence; Z88.2 Allergy status to sulfonamides; Z79.899 Other long term (current) drug therapy
CPT/HCPCS: 36415; 70450; 71045; 74170; 74181; 76700; 80053; 80305; 80320; 81001; 81025; 82140; 82550; 82948; 83690; 83735; 83880; 84100; 84132; 84484; 85007; 85008; 85025; 85610; 87077; 87081; 87088; 87186; 87635; 93005; 94640; 94760; 97116; 97161; 99285; C9113; G0378; J0696; J1644; J1940; J2270; J3430; J7030; J7040; J7626; Q9967